=== PATIENT | female | born 1960 | race Caucasian/White ===

== ENCOUNTER 2016-12-21 02:33 | Inpatient (IN) | payer BC ==
[2016-12-21] MEDS ORDERED: SODIUM CHLORIDE 1,000 ML IV STA (03:33)
[2016-12-21] MEDS ORDERED: CLINDAMYCIN 600MG PREMIX IVPB 50 ML IVPB ONE ×3 (03:33→17:01)
[2016-12-21] MEDS ORDERED: VANCOMYCIN 2,000 MG in DEXTROSE 5%-WATER - 500 ML IVPB ONE (03:34)
[2016-12-21] MEDS ORDERED: VANCOMYCIN 1 GRAM (PRE-DOCKED) 250 ML IVPB ONE (03:37)
[2016-12-21] MEDS ORDERED: morphine CARPU-JECT 2 MG/1 ML DISP.SYRIN IVPUSH ONE (03:54)
[2016-12-21] MEDS ORDERED: ONDANSETRON 4 MG/2 ML VIAL IVPUSH ONE (03:55)
[2016-12-21] MEDS ORDERED: ONDANSETRON 4 MG/2 ML VIAL ONE (04:00)
[2016-12-21] MEDS ORDERED: morphine CARPU-JECT 2 MG/1 ML DISP.SYRIN ONE (04:00)
--- NOTE | 2016-12-21 04:07 | PDOC ---
History of Present Illness - General Chief Complaint: Edema Stated Complaint: RIGHT LEG SWOLLEN Time Seen by Provider: 12/21/16 02:47 History Source: Patient Exam Limitations: No Limitations - History of Present Illness Initial Comments: 12/21/16 03:57 56yo Female patient presents to ED via EMS c/o right LE swelling, pain & infection. Patient states symptoms have been ongoing since . Patient saw Dr. Millard (Wound care MD) who wanted patient admitted last week, but patient refused. She was prescribed clindamycin 300 mg q8hrs, but symptoms continue to get worse. Associated numbness and drainage. Denies fever, DM, CP, Abd pain, n/v/d, confusion or any other complaints at this time. Occurred: reports: other (Ongoing) Severity: Yes: severe Lower Extremity Pain Location: right: leg Method of Injury: No: unknown, assault, burn, direct blow, fell, incised, motor vehicle accident, sports injury, twisted, other Modifying Factors: worse with: None, cold therapy, immobilization, pain medication, rest, other Lower Ext. Injury Location - Specific Injury Location Legs: right: bone tenderness, soft tissue tenderness, pain, swelling, left: normal inspection, non-tender, bilateral: normal range of motion Extremity Pain Location - Extremity Pain Location Extremity Pain Locations: right: leg Past History - Travel Traveled outside of the country in the last 30 days: No Close contact w/someone who was outside of country & ill: No - Past Medical History Allergies/Adverse Reactions: Allergies Allergy/AdvReac Type Severity Reaction Status Date / Time ibuprofen [From Motrin] Allergy Intermediate Rash Verified 07/14/16 11:22 Penicillins Allergy Intermediate Hives Verified 07/27/16 15:08 Home Medications: Ambulatory Orders Albuterol Sulfate [Proair Hfa -] 1 - 2 inh PO TID PRN #0 hfa.aer.ad 10/16/12 Glimepiride [Amaryl -] 2 mg PO AM 12/21/16 Anemia: No Asthma: Yes Cancer: No Cardiac Disorders: No CVA: No COPD: No CHF: No Dementia: No Diabetes: No GI Disorders: Yes (GERD) Disorders: No HTN: Yes Hypercholesterolemia: Yes Liver Disease: No Psychiatric Problems: Yes (anxiety/depression) Suicide Attempt (Hx): No Seizures: No Thyroid Disease: No - Immunization History Td Vaccination: Yes Immunization Up to Date: Yes - Psycho/Social/Smoking Cessation Hx Anxiety: Yes Suicidal Ideation: No Smoking Status: No Smoking History: Never smoked Years of Tobacco Use: 0 Have you smoked in the past 12 months: No Number of Cigarettes Smoked Daily: 0 If you are a former smoker, when did you quit?: 1983 Cigars Per Day: 0 Information on smoking cessation initiated: No Hx Alcohol Use: No Drug/Substance Use Hx: No Substance Use Type: None Hx Substance Use Treatment: No Review of Systems - Review of Systems Able to Perform ROS?: Yes Is the patient limited Nepalese proficient: No Constitutional: No: Chills, Fever Respiratory: No: Cough, Shortness of Breath, Stridor, Wheezing, Productive cough Cardiac (ROS): No: Chest Pain, Lightheadedness, Palpitations, Chest Tightness ABD/GI: No: Constipated, Diarrhea, Nausea, Poor Appetite, Poor Fluid Intake, Rectal Bleeding, Vomiting, Indigestion Musculoskeletal: No: Joint Pain, Joint Swelling, Joint Stiffness Integumentary: Yes: Erythema, Other (Swelling, infectious drainage.) All Other Systems: Reviewed and Negative *Physical Exam - Vital Signs Last Vital Signs Temp Pulse Resp BP Pulse Ox 98.1 F 97 H 21 189/122 100 12/21/16 02:45 12/21/16 02:45 12/21/16 02:45 12/21/16 02:45 12/21/16 02:45 - Physical Exam General Appearance: Yes: Nourished, Appropriately Dressed, Mild Distress. No: Apparent Distress, Moderate Distress, Severe Distress Neck: positive: Trachea midline, Supple, Stridor, Lymphadenopathy (R), Lymphadenopathy (L) Respiratory/Chest: positive: Lungs Clear, Normal Breath Sounds. negative: Respiratory Distress, Accessory Muscle Use, Labored Respiration, Rapid RR Cardiovascular: positive: Regular Rhythm, Regular Rate. negative: Edema, JVD, Murmur Gastrointestinal/Abdominal: positive: Normal Bowel Sounds, Soft. negative: Distended, Guarding, Rebound, Tenderness Musculoskeletal: positive: Normal Inspection. negative: CVA Tenderness Extremity: positive: Normal Range of Motion, Pedal Edema, Swelling, Erythema, Inflammation. negative: Normal Inspection Integumentary: positive: Normal Color, Dry, Warm, Erythema (Rt Leg) Neurologic: positive: president and ceo II-XII NML intact, Fully Oriented, Alert, Normal Mood/ Affect, Normal Response, Motor Strength 01/25 ED Treatment Course - LABORATORY CBC & Chemistry Diagram: 12/21/16 03:45 12/21/16 03:45 *DC/Admit/Observation/Transfer Diagnosis at time of Disposition: Cellulitis of right lower extremity - Discharge Dispostion Condition at time of disposition: Fair Admit: Yes
[2016-12-21] MEDS ORDERED: morphine CARPU-JECT 4 MG/1 ML DISP.SYRIN IVPUSH ONE (05:15)
[2016-12-21] MEDS ORDERED: morphine CARPU-JECT 4 MG/1 ML DISP.SYRIN ONE (05:16)
[2016-12-21 05:32] LABS: BASOPHIL 1.1 % (0-2.0); EOSINOPHIL 6.3 % (0-4.5); MCH 30.8 pg (25.7-33.7); MCHC 33.6 g/dl (32.0-36.0); MEAN CELL VOLUME 91.8 fl (80-96); MEAN PLT VOLUME 8.1 fl (7.5-11.1); NEUTROPHILS 72.1 % (42.8-82.8); PLATELET COUNT 292 K/MM3 (134-434); RDW 14.4 % (11.6-15.6); WHITE BLOOD COUNT 7.9 K/mm3 (4.0-10.0)
[2016-12-21 06:00] LABS: ALBUMIN 3.4 g/dl (3.4-5.0); ALK PHOS 194 U/L (45-117); ANION GAP 14 (8-16); BILIRUBIN,TOTAL 0.8 mg/dL (0.2-1.0); CALCIUM 8.5 mg/dL (8.5-10.1); CO2 26 mmol/L (21-32); CREATININE 0.7 mg/dL (0.55-1.02); GLUCOSE,RANDOM 94 mg/dL (74-106); SGOT/AST 82 U/L (15-37); SGPT/ALT 67 U/L (12-78); TOT PROT 7.3 g/dl (6.4-8.2)
--- NOTE | 2016-12-21 06:20 | PDOC ---
[id number] 100 12/21/16 02:45 12/21/16 02:45 12/21/16 02:45 12/21/16 02:45 12/21/16 02:45 ED Treatment Course - LABORATORY CBC & Chemistry Diagram: 12/23/16 06:00 12/23/16 06:00 - ADDITIONAL ORDERS Additional order review: Laboratory Results 12/21/16 03:45 Sodium 139 Potassium 3.5 Chloride 99 Carbon Dioxide 26 Anion Gap 14 BUN 3 L D Creatinine 0.7 Creat Clearance w eGFR > 60 Random Glucose 94 Calcium 8.5 Total Bilirubin 0.8 D AST 82 H ALT 67 Alkaline Phosphatase 194 H D Total Protein 7.3 Albumin 3.4 D 12/21/16 03:45 RBC 3.94 MCV 91.8 MCHC 33.6 RDW 14.4 D MPV 8.1 Neutrophils % 72.1 Lymphocytes % 11.2 D Monocytes % 9.3 D Eosinophils % 6.3 H D Basophils % 1.1 - Medications Given in the ED: ED Medications Discontinued Medications Generic Name Dose Route Start Last Admin Trade Name Freq PRN Reason Stop Dose Admin Clindamycin Phosphate 50 mls @ 100 mls/hr 12/21/16 03:33 12/21/16 03:51 Cleocin 600 Mg Premix Ivpb - IVPB 12/21/16 04:02 100 mls/hr ONCE ONE Administration Sodium Chloride 1,000 mls @ 1,000 mls/hr 12/21/16 03:33 12/21/16 03:51 Normal Saline - IV 12/21/16 04:32 1,000 mls/hr ASDIR STA Administration Vancomycin HCl 2,000 mg/ 500 mls @ 250 mls/hr 12/21/16 03:34 12/21/16 04:09 Dextrose IVPB 12/21/16 05:33 250 mls/hr ONCE ONE Administration Protocol Morphine Sulfate 2 mg 12/21/16 03:54 12/21/16 04:09 Morphine Injection - IVPUSH 12/21/16 03:55 2 mg ONCE ONE Administration Morphine Sulfate 4 mg 12/21/16 05:15 12/21/16 05:21 Morphine Injection - IVPUSH 12/21/16 05:16 4 mg ONCE ONE Administration Ondansetron HCl 4 mg 12/21/16 03:55 12/21/16 04:09 Zofran Injection IVPUSH 12/21/16 03:56 4 mg ONCE ONE Administration Medical Decision Making - Medical Decision Making 12/21/16 06:19 agree with care from [employer] Clement *DC/Admit/Observation/Transfer Diagnosis at time of Disposition: Cellulitis of right lower extremity - Discharge Dispostion Condition at time of disposition: Fair
--- NOTE | 2016-12-21 08:23 | HP ---
CHIEF COMPLAINT: PCP:Dr.Heera Galindo HISTORY OF PRESENT ILLNESS: This is a 56 y/o F with PMH of HTN, Asthma, Gerd, Varicose veins, who went to see Dr. Millard at wound care 1 week ago, for redness, warmth and swelling of her right lower extremity. Patient was send home on Clindamycin and silvadene ointment. She took it for 1 week, but came back to ER with worsening pain, redness, swelling, chills, subtle fever and nausea. In the ER, (1)Stable vitals (2)No fever or leukocytosis (3)severe redness, warmth, swelling, burning sensation at right guajardo. Minimal oozing. Recent Travel:none PAST MEDICAL HISTORY:as above, denied h/o DM. PAST SURGICAL HISTORY:"rt leg" fracture and bryce placement in 2012. Social History: Smoking:never Alcohol:denied Drugs: denied Family History:Mother-HTN Allergies ibuprofen [From Motrin] Allergy (Intermediate, Verified 07/14/16 11:22) Rash Penicillins Allergy (Intermediate, Verified 07/27/16 15:08) Hives HOME MEDICATIONS: Proair inhaler prn Norvasc 10mg daily Prilosec 20mg daily REVIEW OF SYSTEMS CONSTITUTIONAL: Had fever, chills, subtle fevers, nausea at home. HEENT: Absent: rhinorrhea, nasal congestion, throat pain. CARDIOVASCULAR: Absent: chest pain, irregular heart rate RESPIRATORY: Absent: cough, shortness of breath, dyspnea with exertion, orthopnea, wheezing, stridor, hemoptysis GASTROINTESTINAL: Absent: abdominal pain, abdominal distension,vomiting, diarrhea, constipation GENITOURINARY: no c/o dysuria, frequency, urgency, hesitancy, hematuria, flank pain MUSCULOSKELETAL: no c/o myalgia, arthralgia, joint swelling, back pain, neck pain SKIN: Absent: rt guajardo, red, warm , swollen HEMATOLOGIC/IMMUNOLOGIC: Absent: easy bleeding, easy bruising, lymphadenopathy, frequent infections ENDOCRINE: Absent: unexplained weight gain, unexplained weight loss, heat intolerance, cold intolerance NEUROLOGIC: Absent: headache, focal weakness or paresthesias, dizziness, unsteady gait, seizure, mental status changes, bladder or bowel incontinence PSYCHIATRIC: Absent: anxiety, depression. PHYSICAL EXAMINATION GENERAL: Awake, alert, and fully oriented,occasional c/o burning in rt guajardo. HEAD: Normal with no signs of trauma. EYES: extraocular movements intact, sclera anicteric, conjunctiva clear. No lid lag. EARS:Ears normal,no discharges NECK: Normal range of motion, supple LUNGS: Breath sounds equal, clear to auscultation bilaterally. No wheezes, and no crackles. No accessory muscle use. HEART: Regular rate and rhythm, normal S1 and S2 without murmur, rub or gallop. ABDOMEN: Soft, nontender, not distended MUSCULOSKELETAL: Normal range of motion at all joints. Except pain fullmovement in rt leg sec to cellultis. UPPER EXTREMITIES: well-perfused. No cyanosis. No clubbing. No peripheral edema. LOWER EXTREMITIES: 2+ pulses to both LEs. warm, well-perfused.Rt LE guajardo area- red, warm, swollen, minimal oozing. NEUROLOGICAL: Cranial nerves II-XII intact. Normal speech. gait not observed PSYCHIATRIC: Cooperative. Good eye contact. Appropriate mood and affect. SKIN: as mentioned above ASSESSMENT/PLAN: This is a 56 y/o F who came to ER with Rt LE cellulitis, after having failed outpt therapy with Clindamycin. 1.Rt LE cellulitis- failed outpt therapy with Clinda, Silvadene topical -Patient had subtle fevers, nausea, chills at home. -Patient remains afebrile and without leukocytosis here -Leg painful, has difficulty walking, no h/o trauma. -Received vanco and Clinda IV in ER -IV hydration. -Placed ID consult- -Informed about admission-He will see the pt. -continue Pain management -PT consult when pt improves -Silvadene ointment for local wound care -Follow up blood cultures, gram stain, wound culture. 2. H/O Asthma-Stable -continue proair prn 3.HTN-BP stable -will continue norvasc 4.GERD -on prilosec 20 at home -will keep her on protonix 40mg for now. DVT pro-Lovenox SQ GI Pro-on protonix Visit type - Emergency Visit Emergency Visit: No - New Patient This patient is new to me today: Yes Date on this admission: 01/07/17 - Critical Care Critical Care patient: No
[2016-12-21] MEDS ORDERED: OXYCODONE/APAP 5/325MG COMBO TABLET PO PRN (09:49)
[2016-12-21] MEDS: SODIUM CHLORIDE 1,000 ML IV SCH (10:00)
[2016-12-21] MEDS ORDERED: COLLAGENASE CLOSTRIDIUM HIST. 30 GRAMS TUBE TP SCH (10:00)
[2016-12-21] MEDS ORDERED: OXYCODONE/APAP 5/325MG COMBO TABLET ONE (10:26)
[2016-12-21] MEDS ORDERED: PANTOPRAZOLE 40 MG TABLET (FP) ONE (10:26)
[2016-12-21] MEDS ORDERED: amLODIPine BESYLATE 5 MG TABLET (FP) ONE (10:26)
[2016-12-21] MEDS: ENOXAPARIN NA (PORCINE) 40 MG/0.4 ML DISP.SYRIN SQ SCH (10:34)
[2016-12-21] MEDS: PANTOPRAZOLE 40 MG TABLET (FP) PO SCH (10:35)
[2016-12-21] MEDS: oxyCODONE HCL 5 MG TABLET PO PRN ×2 (10:35→10:36)
[2016-12-21] MEDS: amLODIPine BESYLATE 10 MG TABLET (FP) PO SCH (10:35)
[2016-12-21] MEDS: ACETAMINOPHEN 325 MG TABLET (FP) PO PRN (10:36)
--- NOTE | 2016-12-21 13:27 | CONSULT ---
- Consultation REQUESTING PROVIDER: Giancarlo Millard DO (Wound Care) CONSULT REQUEST: We have been asked to surgically evaluate this patient for RLE cellulitis. PCP: Dorene Galindo HPI: Called to eval 56 yo female with PMHx noted below. Patient is very well know to Dr. Millard as he follows her in the [facility]. Last seen in [facility] 1 week ago for RLE redness, warmth and swelling. She was sent home on Clindamycin and silvadene ointment. She hasn't washed her leg since first being diagnosed with above problem. She was suppossed to be seen in the [facility] today at 1PM but decided on coming to ER due to increased pain. She ambulates unassisted. Deneis n/v/f/c or trauma. PMHx: HTN, asthma, Gerd, Varicose veins PSHx: RLE fracture w/ intermedularry bryce 2012. Allergies ibuprofen --> Rash Penicillins --> Hives HOME MEDS Proair INH prn Norvasc 10mg daily Prilosec 20mg daily ROS: CONSTITUTIONAL: Absent: fever, chills, diaphoresis, generalized weakness, malaise, loss of appetite, weight change CARDIOVASCULAR: Absent: chest pain, syncope, palpitations, irregular heart rate , lightheadedness, peripheral edema RESPIRATORY: Absent: cough, shortness of breath, dyspnea with exertion, wheezing , stridor, hemoptysis GASTROINTESTINAL:Absent: abdominal pain, abdominal distension, nausea, vomiting , diarrhea, constipation, melena, hematochezia GENITOURINARY: Absent: dysuria, frequency, urgency, hesitancy, hematuria, flank pain, genital pain MUSCULOSKELETAL: Absent: myalgia, arthralgia, joint swelling, back pain, neck pain SKIN: See above. HEMATOLOGIC/IMMUNOLOGIC: Absent: easy bleeding, easy bruising, lymphadenopathy NEUROLOGIC: Absent: headache, focal weakness, paresthesias, dizziness, unsteady gait, seizure, mental status changes, PSYCHIATRIC: Absent: anxiety, depression, suicidal or homicidal ideation, hallucinations. PE: GENERAL: Awake, alert, and fully oriented, nad. HEAD: Normal with no signs of trauma. EYES: PERRL, sclera anicteric, conjunctiva clear. NECK: Normal ROM, supple without lymphadenopathy, JVD, or masses. LUNGS: CTA b/l anteriorly HEART: RRR MUSCULOSKELETAL: Normal ROM at all joints. No bony deformities or tenderness. No CVA tenderness. UPPER EXTREMITIES: 2+ pulses, warm, well-perfused. No cyanosis. Cap refill <2 seconds. No peripheral edema. LOWER EXTREMITIES: 2+ pulses, warm, well-perfused, No calf tenderness b/l. No peripheral edema. NEUROLOGICAL: Normal speech, gait not observed. PSYCH: Cooperative. Good eye contact. Appropriate mood and affect. SKIN: RLE distal calf to ankle with circumfrential cellulitis. Erythema. Slightly weeping. Slight odor. No purulent drainage. Vital Signs Temperature 97.9 F 12/21/16 10:22 Pulse Rate 95 H 12/21/16 10:22 Respiratory Rate 16 12/21/16 10:22 Blood Pressure 125/82 12/21/16 10:22 O2 Sat by Pulse Oximetry (%) 99 12/21/16 10:22 Lab Results WBC 7.9 K/mm3 (4.0-10.0) 12/21/16 03:45 RBC 3.94 M/mm3 (3.60-5.2) 12/21/16 03:45 Hgb 12.2 GM/dL (10.7-15.3) D 12/21/16 03:45 Hct 36.2 % (32.4-45.2) 12/21/16 03:45 MCV 91.8 fl (80-96) 12/21/16 03:45 MCHC 33.6 g/dl (32.0-36.0) 12/21/16 03:45 RDW 14.4 % (11.6-15.6) D 12/21/16 03:45 Plt Count 292 K/MM3 (134-434) 12/21/16 03:45 Sodium 139 mmol/L (136-145) 12/21/16 03:45 Potassium 3.5 mmol/L (3.5-5.1) 12/21/16 03:45 Chloride 99 mmol/L (98-107) 12/21/16 03:45 Carbon Dioxide 26 mmol/L (21-32) 12/21/16 03:45 Anion Gap 14 (8-16) 12/21/16 03:45 BUN 3 mg/dL (7-18) L D 12/21/16 03:45 Creatinine 0.7 mg/dL (0.55-1.02) 12/21/16 03:45 Random Glucose 94 mg/dL (74-106) 12/21/16 03:45 Calcium 8.5 mg/dL (8.5-10.1) 12/21/16 03:45 Problem List - Problems (1) Cellulitis of right lower extremity Assessment/Plan: RLE washed with warm soapy water, irrigated with dilute betadine. Dressed with xeroform/4x4/kerlix Elevate extremity IV abx No further surgical intervention Cont medical management Code(s): L03.115 - CELLULITIS OF RIGHT LOWER LIMB Visit type - Case Type Case Type: ED Admission - Emergency Emergency Visit: Yes ED Registration Date: 12/21/16 Care time: The patient presented to the Emergency Department on the above date and was hospitalized for further evaluation of their emergent condition. - New patient This patient is new to me today: Yes Date on this admission: 12/21/16
--- NOTE | 2016-12-21 16:13 | CONSULT ---
Consult Consult Specialty:: infectious diseases Reason for Consultation:: cellulitis of the leg - History of Present Illness Chief Complaint: pain and swelling of the leg History of Present Illness: 56yo Female patient c/o right LE swelling, pain & infection. Patient states symptoms have been ongoing since . Patient saw Dr. Millard who wanted patient admitted last week, but patient refused. She was prescribed clindamycin 300 mg q8hrs, but symptoms continue to get worse. Associated numbness and drainage. Denies fever, DM, CP, Abd pain, n/v/d, confusion or any other complaints at this time. patient looks very dishevelled and her leg according to her has become very bad and pain has increased - History Source History Provided By: Patient Limitations to Obtaining History: No Limitations - Alcohol/Substance Use Hx Alcohol Use: No - Smoking History Smoking history: Never smoked Have you smoked in the past 12 months: No Aproximately how many cigarettes per day: 0 If you are a former smoker, when did you quit?: 1983 Home Medications - Allergies Allergies/Adverse Reactions: Allergies Allergy/AdvReac Type Severity Reaction Status Date / Time ibuprofen [From Motrin] Allergy Intermediate Rash Verified 07/14/16 11:22 Penicillins Allergy Intermediate Hives Verified 07/27/16 15:08 - Home Medications Home Medications: Ambulatory Orders Albuterol Sulfate [Proair Hfa -] 1 - 2 inh PO TID PRN #0 hfa.aer.ad 10/16/12 Amlodipine Besylate [Norvasc -] 10 mg PO DAILY 12/21/16 Review of Systems - Review of Systems Constitutional: reports: No Symptoms Eyes: reports: No Symptoms HENT: reports: No Symptoms Neck: reports: No Symptoms Cardiovascular: reports: No Symptoms Respiratory: reports: No Symptoms Gastrointestinal: reports: No Symptoms Genitourinary: reports: No Symptoms Musculoskeletal: reports: Extremity Pain, Other Integumentary: reports: Change in Color, Erythema Neurological: reports: No Symptoms Endocrine: reports: No Symptoms Hematology/Lymphatic: reports: No Symptoms Psychiatric: reports: No Symptoms Physical Exam Vital Signs: Vital Signs Temperature 97.9 F 12/21/16 10:22 Pulse Rate 95 H 12/21/16 10:22 Respiratory Rate 16 12/21/16 10:22 Blood Pressure 125/82 12/21/16 10:22 O2 Sat by Pulse Oximetry (%) 99 12/21/16 10:22 Constitutional: Yes: Well Nourished, No Distress, Calm Eyes: Yes: Conjunctiva Clear HENT: Yes: Atraumatic Neck: Yes: Supple, Trachea Midline Cardiovascular: Yes: Regular Rate and Rhythm Respiratory: Yes: Regular, CTA Bilaterally Gastrointestinal: Yes: Normal Bowel Sounds, Soft ...Rectal Exam: Yes: Deferred Musculoskeletal: Yes: Muscle Pain, Other Extremities: Yes: Erythema Integumentary: Yes: Other (cellulitis rt leg. Erythema. Slightly weeping. Slight odor. No purulent drainage.) Neurological: Yes: Alert, Oriented Psychiatric: Yes: Alert, Oriented Assessment/Plan Problem List - Problems (1) Cellulitis of right lower extremity Code(s): L03.115 - CELLULITIS OF RIGHT LOWER LIMB after looking at the history i think patient probably has mrsa she had been on clinda but did not improve plan will start on vanco and zosyn will await for culture report and then decide
[2016-12-21 16:17] VITALS: BMI 28.3
[2016-12-21] MEDS: CLINDAMYCIN 600MG PREMIX IVPB 50 ML IVPB SCH ×2 (17:00→18:36)
[2016-12-21] MEDS: SILVER SULFADIAZINE 1% TOP CREAM 50 GM JAR TP SCH ×2 (18:35→22:55)
[2016-12-21] MEDS ORDERED: INFLUENZA VACCINE 45 MCG/0.5 ML (MDV 16-17) IM ONE (21:00)
[2016-12-21] MEDS: AZTREONAM 1 GM in DEXTROSE 5%-WATER - 50 ML IVPB SCH (21:10)
[2016-12-22] MEDS: SODIUM CHLORIDE 1,000 ML IV SCH ×2 (00:14→18:26)
[2016-12-22] MEDS: CLINDAMYCIN 600MG PREMIX IVPB 50 ML IVPB SCH ×3 (02:10→17:13)
[2016-12-22] MEDS: oxyCODONE HCL 5 MG TABLET PO PRN ×4 (02:23→23:09)
[2016-12-22] MEDS: ACETAMINOPHEN 325 MG TABLET (FP) PO PRN ×4 (02:25→23:08)
[2016-12-22] MEDS: AZTREONAM 1 GM in DEXTROSE 5%-WATER - 50 ML IVPB SCH ×2 (03:03→11:36)
[2016-12-22] MEDS: VANCOMYCIN 1,250 MG in DEXTROSE 5%-WATER - 250 ML IVPB SCH (04:05)
--- NOTE | 2016-12-22 08:24 | PN ---
Progress Note (short form) - Note Progress Note: She states that he leg feels better, somewhat painful with dressing change. Vital Signs Period Temp Pulse Resp BP Sys/Bazzi Pulse Ox Last 24 Hr 97.9 F-99.4 F 84-95 16-18 125-160/82-102 96-99 PE: RLE: dressing dry today with dressing change. No serous drainage noted. Mild erythema to ankle and mid calf. +2 Dp pulse. CBC, BMP 12/21/16 03:45 12/21/16 03:45 A/p: 56 yo female with chronic RLE wound, seen in [facility] Local wound care today with warm/soapy water and reapplied xerform/kerlix by nursing staff. IV abx as per ID, clind/vanco Elevate legs at all time to help with swelling
[2016-12-22 08:44] LABS: BASOPHIL 0.8 % (0-2.0); EOSINOPHIL 8.7 % (0-4.5); MCHC 33.1 g/dl (32.0-36.0); MEAN CELL VOLUME 93.7 fl (80-96); MEAN PLT VOLUME 7.8 fl (7.5-11.1); NEUTROPHILS 62.8 % (42.8-82.8); PLATELET COUNT 246 K/MM3 (134-434); RDW 14.6 % (11.6-15.6); WHITE BLOOD COUNT 5.1 K/mm3 (4.0-10.0)
[2016-12-22 09:01] LABS: URINE APPEARANCE CLOUDY; URINE BILIRUBIN NEGATIVE (NEGATIVE); URINE COLOR LTYELLOW; URINE GLUCOSE (UA) NEGATIVE (NEGATIVE); URINE KETONE NEGATIVE (NEGATIVE); URINE LEUK ESTERASE NEGATIVE (NEGATIVE); URINE NITRITE NEGATIVE (NEGATIVE); URINE PROTEIN NEGATIVE (NEGATIVE); URINE UROBILINOGEN NEGATIVE E.U./dl (0.2-1.0)
[2016-12-22 09:02] LABS: URINE BLOOD 2+ (NEGATIVE)
[2016-12-22 09:04] LABS: URINE MUCUS RARE; URINE RBC <1 /hpf (0-3); URINE WBC 3 /hpf (3-5)
[2016-12-22] MEDS ORDERED: ALBUTEROL SO4 6.7 GM HFA INHALER IH PRN ×3 (09:11→09:19)
--- NOTE | 2016-12-22 09:13 | PN ---
Progress Note (short form) - Note Progress Note: Subjective: The patient was seen and examined at the bedside, she reports her leg is feeling better today. Dressing change with Valarie JIMENEZ at bedside Current Medications Generic Name Dose Route Start Last Admin Trade Name Freq PRN Reason Stop Dose Admin Acetaminophen 325 mg 12/21/16 10:23 12/22/16 08:36 Tylenol - PO 325 mg Q6H PRN Administration PAIN Amlodipine Besylate 10 mg 12/21/16 10:00 12/21/16 10:35 Norvasc - PO 10 mg DAILY NICCI Administration Enoxaparin Sodium 40 mg 12/21/16 10:00 12/21/16 10:34 Lovenox - SQ 40 mg DAILY NICCI Administration Sodium Chloride 1,000 mls @ 100 mls/hr 12/21/16 08:45 12/22/16 00:14 Normal Saline - IV 100 mls/hr ASDIR NICCI Administration Clindamycin Phosphate 50 mls @ 100 mls/hr 12/21/16 15:00 12/22/16 02:10 Cleocin 600 Mg Premix Ivpb - IVPB 100 mls/hr Q8H-IV NICCI Administration Aztreonam 1 gm/ Dextrose 50 mls @ 100 mls/hr 12/21/16 18:00 12/22/16 03:03 IVPB 100 mls/hr Q8H-IV NICCI Administration Protocol Vancomycin HCl 1,250 mg/ 250 mls @ 166.667 mls/hr 12/22/16 04:00 12/22/16 04:05 Dextrose IVPB 166.667 mls/hr DAILY@0400 NICCI Administration Protocol Oxycodone HCl 5 mg 12/21/16 10:23 12/22/16 08:35 Roxicodone - PO 5 mg Q6H PRN Administration PAIN Pantoprazole Sodium 40 mg 12/21/16 10:00 12/21/16 10:35 Protonix - PO 40 mg DAILY NICCI Administration Objective: Vital Signs Period Temp Pulse Resp BP Sys/Bazzi Pulse Ox Last 24 Hr 97.9 F-99.4 F 84-95 16-18 125-160/82-102 96-99 Physical Exam: General: NAD, A&Ox3 Lungs: CTA bilaterally Heart: RRR, S1S2 Abd: Soft, non-tender, non-distended. Normoactive bowel sounds Ext: RLE with erythema ankle to mid calf. 2+ DP pulse. Neuro: CN 2-12 intact CBCD WBC 5.1 K/mm3 (4.0-10.0) D 12/22/16 06:00 RBC 3.45 M/mm3 (3.60-5.2) L 12/22/16 06:00 Hgb 10.7 GM/dL (10.7-15.3) D 12/22/16 06:00 Hct 32.3 % (32.4-45.2) L 12/22/16 06:00 MCV 93.7 fl (80-96) 12/22/16 06:00 MCHC 33.1 g/dl (32.0-36.0) 12/22/16 06:00 RDW 14.6 % (11.6-15.6) 12/22/16 06:00 Plt Count 246 K/MM3 (134-434) 12/22/16 06:00 MPV 7.8 fl (7.5-11.1) 12/22/16 06:00 CMP Sodium 139 mmol/L (136-145) 12/21/16 03:45 Potassium 3.5 mmol/L (3.5-5.1) 12/21/16 03:45 Chloride 99 mmol/L (98-107) 12/21/16 03:45 Carbon Dioxide 26 mmol/L (21-32) 12/21/16 03:45 Anion Gap 14 (8-16) 12/21/16 03:45 BUN 3 mg/dL (7-18) L D 12/21/16 03:45 Creatinine 0.7 mg/dL (0.55-1.02) 12/21/16 03:45 Creat Clearance w eGFR > 60 (>60) 12/21/16 03:45 Random Glucose 94 mg/dL (74-106) 12/21/16 03:45 Calcium 8.5 mg/dL (8.5-10.1) 12/21/16 03:45 Total Bilirubin 0.8 mg/dL (0.2-1.0) D 12/21/16 03:45 AST 82 U/L (15-37) H 12/21/16 03:45 ALT 67 U/L (12-78) 12/21/16 03:45 Alkaline Phosphatase 194 U/L (45-117) H D 12/21/16 03:45 Total Protein 7.3 g/dl (6.4-8.2) 12/21/16 03:45 Albumin 3.4 g/dl (3.4-5.0) D 12/21/16 03:45 Microbiology 12/21/16 03:45 Blood - Peripheral Venous Blood Culture - Preliminary NO GROWTH OBTAINED AFTER 24 HOURS, INCUBATION TO CONTINUE FOR 4 DAYS. 12/21/16 03:45 Blood - Peripheral Venous Blood Culture - Preliminary NO GROWTH OBTAINED AFTER 24 HOURS, INCUBATION TO CONTINUE FOR 4 DAYS. 12/21/16 05:15 Cellulitis Gram Stain - Final Assessment: This is a 56 year old female with PMHx of HTN, asthma, gerd, vericose veins, who presented to the ED with erythema, warmth, swelling of RLE x1 week. Plan: 1) ID: RLE cellulitis - Local wound care - Elevate RLE - Continue Vancomycin (12/21- ) - Continue Aztreonam (12/21- ) - Continue Clindamycin (12/21- ) - WBC wnl - Afebrile - F/u ID consult - Appreciate surgery consult 2) Pulmonary: Asthma - No active issues - Continue albuterol 3) Cardiology: HTN - Continue Norvasc 4) F/E/N: - Sodium controlled diet - Monitor electrolytes 5) Prophylaxis: - OOB ambulating - Lovenox 40mg sq daily 6) Dispo: - Requires continued inpatient care CODE STATUS: FULL CODE Visit type - Emergency Visit Emergency Visit: Yes ED Registration Date: 12/21/16 Care time: The patient presented to the Emergency Department on the above date and was hospitalized for further evaluation of their emergent condition. - New Patient This patient is new to me today: Yes Date on this admission: 12/22/16 - Critical Care Critical Care patient: No
[2016-12-22] MEDS ORDERED: PT OWN MED DRAWER 7, Y5N ONE (09:15)
[2016-12-22] MEDS: amLODIPine BESYLATE 10 MG TABLET (FP) PO SCH (09:20)
[2016-12-22] MEDS: PANTOPRAZOLE 40 MG TABLET (FP) PO SCH (09:20)
[2016-12-22] MEDS: ENOXAPARIN NA (PORCINE) 40 MG/0.4 ML DISP.SYRIN SQ SCH (09:21)
[2016-12-22 09:25] LABS: CALCIUM 7.9 mg/dL (8.5-10.1); CREATININE 0.7 mg/dL (0.55-1.02)
[2016-12-22] MEDS ORDERED: POTASSIUM CHLORIDE TABS 20 MEQ TABLET.ER (FP) PO ONE (09:52)
--- NOTE | 2016-12-22 15:55 | PN ---
Progress Note, Physician History of Present Illness: patient feeling better wound care following dressing done leg starting to look better patient feeling better - Current Medication List Current Medications: Active Medications Acetaminophen (Tylenol -) 325 mg PO Q6H PRN PRN Reason: PAIN Last Admin: 12/22/16 15:43 Dose: 325 mg Albuterol Sulfate (Ventolin Hfa Inhaler -) 1 puff IH TID PRN PRN Reason: SHORTNESS OF BREATH Albuterol Sulfate (Ventolin Hfa Inhaler -) 2 puff IH TID PRN PRN Reason: SHORTNESS OF BREATH Amlodipine Besylate (Norvasc -) 10 mg PO DAILY [facility] Last Admin: 12/22/16 09:20 Dose: 10 mg Enoxaparin Sodium (Lovenox -) 40 mg SQ DAILY [facility] Last Admin: 12/22/16 09:21 Dose: 40 mg Sodium Chloride (Normal Saline -) 1,000 mls @ 100 mls/hr IV ASDIR [facility] Last Admin: 12/22/16 00:14 Dose: 100 mls/hr Clindamycin Phosphate (Cleocin 600 Mg Premix Ivpb -) 50 mls @ 100 mls/hr IVPB Q8H-IV [facility] Last Admin: 12/22/16 09:20 Dose: 100 mls/hr Vancomycin HCl 1,250 mg/ (Dextrose) 250 mls @ 166.667 mls/hr IVPB DAILY@0400 [facility] PRN Reason: Protocol Last Admin: 12/22/16 04:05 Dose: 166.667 mls/hr Oxycodone HCl (Roxicodone -) 5 mg PO Q6H PRN PRN Reason: PAIN Last Admin: 12/22/16 15:42 Dose: 5 mg Pantoprazole Sodium (Protonix -) 40 mg PO DAILY [facility] Last Admin: 12/22/16 09:20 Dose: 40 mg - Objective Vital Signs: Vital Signs Temperature 98.6 F 12/22/16 15:11 Pulse Rate 88 12/22/16 15:11 Respiratory Rate 18 12/22/16 15:11 Blood Pressure 147/95 12/22/16 10:25 O2 Sat by Pulse Oximetry (%) 96 12/21/16 21:00 Constitutional: Yes: No Distress, Calm Cardiovascular: Yes: Regular Rate and Rhythm Respiratory: Yes: Regular, CTA Bilaterally Gastrointestinal: Yes: Normal Bowel Sounds, Soft Musculoskeletal: Yes: Other Extremities: Yes: Erythema Integumentary: Yes: Erythema (improving) Neurological: Yes: Alert, Oriented Psychiatric: Yes: Alert Labs: CBC, BMP 12/22/16 06:00 12/22/16 06:00 Assessment/Plan Problem List - Problems (1) Cellulitis of right lower extremity Code(s): L03.115 - CELLULITIS OF RIGHT LOWER LIMB after looking at the history i think patient probably has mrsa she had been on clinda but did not improve plan will stop aztreonam continue vanco rest as per primary team
[2016-12-22] MEDS ORDERED: diphenhydrAMINE HCL 25 MG CAPSULE (FP) PO ONE (23:38)
[2016-12-23] MEDS: CLINDAMYCIN 600MG PREMIX IVPB 50 ML IVPB SCH ×2 (01:58→09:28)
[2016-12-23] MEDS: VANCOMYCIN 1,250 MG in DEXTROSE 5%-WATER - 250 ML IVPB SCH (04:05)
[2016-12-23] MEDS: SODIUM CHLORIDE 1,000 ML IV SCH ×2 (06:50→19:42)
[2016-12-23 07:43] LABS: MCH 31.1 pg (25.7-33.7); MCHC 33.3 g/dl (32.0-36.0); MEAN CELL VOLUME 93.5 fl (80-96); MEAN PLT VOLUME 7.7 fl (7.5-11.1); PLATELET COUNT 250 K/MM3 (134-434); RDW 14.5 % (11.6-15.6); WHITE BLOOD COUNT 5.1 K/mm3 (4.0-10.0)
[2016-12-23 07:58] LABS: CALCIUM 7.9 mg/dL (8.5-10.1); CREATININE 0.6 mg/dL (0.55-1.02)
--- NOTE | 2016-12-23 08:47 | PN ---
Progress Note (short form) - Note Progress Note: Subjective: The patient was seen and examined at the bedside, she reports feeling better today and is "eager to go home" Current Medications Generic Name Dose Route Start Last Admin Trade Name Fresaroj PRN Reason Stop Dose Admin Acetaminophen 325 mg 12/21/16 10:23 12/22/16 23:08 Tylenol - PO 325 mg Q6H PRN Administration PAIN Albuterol Sulfate 1 puff 12/22/16 09:19 Ventolin Hfa Inhaler - IH TID PRN SHORTNESS OF BREATH Albuterol Sulfate 2 puff 12/22/16 09:19 Ventolin Hfa Inhaler - IH TID PRN SHORTNESS OF BREATH Amlodipine Besylate 10 mg 12/21/16 10:00 12/22/16 09:20 Norvasc - PO 10 mg DAILY [facility] Administration Enoxaparin Sodium 40 mg 12/21/16 10:00 12/22/16 09:21 Lovenox - SQ 40 mg DAILY [facility] Administration Sodium Chloride 1,000 mls @ 100 mls/hr 12/21/16 08:45 12/23/16 06:50 Normal Saline - IV 100 mls/hr ASDIR [facility] Administration Clindamycin Phosphate 50 mls @ 100 mls/hr 12/21/16 15:00 12/23/16 01:58 Cleocin 600 Mg Premix Ivpb - IVPB 100 mls/hr Q8H-IV [facility] Administration Vancomycin HCl 1,250 mg/ 250 mls @ 166.667 mls/hr 12/22/16 04:00 12/23/16 04:05 Dextrose IVPB 166.667 mls/hr DAILY@0400 [facility] Administration Protocol Oxycodone HCl 5 mg 12/21/16 10:23 12/22/16 23:09 Roxicodone - PO 5 mg Q6H PRN Administration PAIN Pantoprazole Sodium 40 mg 12/21/16 10:00 12/22/16 09:20 Protonix - PO 40 mg DAILY [facility] Administration Objective: Vital Signs Period Temp Pulse Resp BP Sys/Bazzi Pulse Ox Last 24 Hr 98.2 F-99.0 F 85-92 18-20 147-157/95-106 97 Physical Exam: General: NAD, A&Ox3 Lungs: CTA bilaterally Heart: RRR, S1S2 Abd: Soft, non-tender, non-distended. Normoactive bowel sounds Ext: RLE with dressing, c/d/i. 2+ DP pulse. Neuro: CN 2-12 intact CBCD WBC 5.1 K/mm3 (4.0-10.0) 12/23/16 06:00 RBC 3.40 M/mm3 (3.60-5.2) L 12/23/16 06:00 Hgb 10.6 GM/dL (10.7-15.3) L 12/23/16 06:00 Hct 31.8 % (32.4-45.2) L 12/23/16 06:00 MCV 93.5 fl (80-96) 12/23/16 06:00 MCHC 33.3 g/dl (32.0-36.0) 12/23/16 06:00 RDW 14.5 % (11.6-15.6) 12/23/16 06:00 Plt Count 250 K/MM3 (134-434) 12/23/16 06:00 MPV 7.7 fl (7.5-11.1) 12/23/16 06:00 CMP Sodium 140 mmol/L (136-145) 12/23/16 06:00 Potassium 3.5 mmol/L (3.5-5.1) 12/23/16 06:00 Chloride 104 mmol/L (98-107) 12/23/16 06:00 Carbon Dioxide 27 mmol/L (21-32) 12/23/16 06:00 Anion Gap 9 (8-16) 12/23/16 06:00 BUN 3 mg/dL (7-18) L 12/23/16 06:00 Creatinine 0.6 mg/dL (0.55-1.02) 12/23/16 06:00 Creat Clearance w eGFR > 60 (>60) 12/21/16 03:45 Random Glucose 100 mg/dL (74-106) 12/23/16 06:00 Calcium 7.9 mg/dL (8.5-10.1) L 12/23/16 06:00 Total Bilirubin 0.8 mg/dL (0.2-1.0) D 12/21/16 03:45 AST 82 U/L (15-37) H 12/21/16 03:45 ALT 67 U/L (12-78) 12/21/16 03:45 Alkaline Phosphatase 194 U/L (45-117) H D 12/21/16 03:45 Total Protein 7.3 g/dl (6.4-8.2) 12/21/16 03:45 Albumin 3.4 g/dl (3.4-5.0) D 12/21/16 03:45 Microbiology 12/21/16 03:45 Blood - Peripheral Venous Blood Culture - Preliminary NO GROWTH OBTAINED AFTER 48 HOURS, INCUBATION TO CONTINUE FOR 3 DAYS. 12/21/16 03:45 Blood - Peripheral Venous Blood Culture - Preliminary NO GROWTH OBTAINED AFTER 48 HOURS, INCUBATION TO CONTINUE FOR 3 DAYS. 12/21/16 05:15 Cellulitis Gram Stain - Final 12/21/16 05:15 Cellulitis Wound Culture - Preliminary Presumptive Mrsa (Pbp2a Pos) Assessment: This is a 56 year old female with PMHx of HTN, asthma, gerd, vericose veins, who presented to the ED with erythema, warmth, swelling of RLE x1 week. Plan: 1) ID: RLE cellulitis, presumptive MRSA - Local wound care (xeroform, can be discharged with silvadene) - Elevate RLE - Continue Vancomycin (12/21- ) - Discontinued Aztreonam (12/21-12/22) - Discontinued Clindamycin (12/21-12/22) - WBC wnl - Afebrile - Appreciate ID consult - Appreciate surgery consult 2) Pulmonary: Asthma - No active issues - Continue albuterol 3) Cardiology: HTN - Continue Norvasc 4) F/E/N: - Sodium controlled diet - Monitor electrolytes 5) Prophylaxis: - OOB ambulating - Lovenox 40mg sq daily - PT evaluation (patient reports only walking to the commode) 6) Dispo: - Requires continued inpatient care CODE STATUS: FULL CODE Visit type - Emergency Visit Emergency Visit: Yes ED Registration Date: 12/21/16 Care time: The patient presented to the Emergency Department on the above date and was hospitalized for further evaluation of their emergent condition. - New Patient This patient is new to me today: No - Critical Care Critical Care patient: No
--- NOTE | 2016-12-23 08:50 | PN ---
Progress Note (short form) - Note Progress Note: Pt states that her foot is less tender. Vital Signs Period Temp Pulse Resp BP Sys/Bazzi Pulse Ox Last 24 Hr 98.2 F-99.0 F 85-92 18-20 147-157/95-106 97 PE: RLE: +2 DP pulse. Decreased erythema. Mild tenderness with dressing change. Overall dressing dry from yesterday. Wound irrigated/xeroform/kerlix and mukesh wrap applied. CBC, BMP 12/23/16 06:00 12/23/16 06:00 Microbiology 12/21/16 05:15 Cellulitis Gram Stain - Final 12/21/16 05:15 Cellulitis Wound Culture - Preliminary Presumptive Mrsa (Pbp2a Pos) A/P: 56 yo female with chronic RLE wound, admitted with cellulitis Cellulitis improving Cont IV abx, as per ID, Wound culture presumpive MRSA on Vanco Local wound care, may resume silvadene/mukesh wraps and f/u at outpt with Dr. Millard. D/w Dr. Millard
[2016-12-23] MEDS ORDERED: PT OWN MED DRAWER 7, Y5N ONE ×2 (09:23→10:55)
[2016-12-23] MEDS: amLODIPine BESYLATE 10 MG TABLET (FP) PO SCH (09:27)
[2016-12-23] MEDS: ENOXAPARIN NA (PORCINE) 40 MG/0.4 ML DISP.SYRIN SQ SCH (09:28)
[2016-12-23] MEDS: PANTOPRAZOLE 40 MG TABLET (FP) PO SCH (09:28)
[2016-12-23] MEDS: oxyCODONE HCL 5 MG TABLET PO PRN ×2 (10:57→21:40)
[2016-12-23] MEDS: ACETAMINOPHEN 325 MG TABLET (FP) PO PRN ×2 (10:58→21:41)
[2016-12-23] MEDS: POLYETHYLENE GLYCOL 3350 119 GM BTL PO SCH (10:58)
--- NOTE | 2016-12-23 16:48 | PN ---
Progress Note, Physician History of Present Illness: patient feeling better legs improving itching better erythema improving - Current Medication List Current Medications: Active Medications Acetaminophen (Tylenol -) 325 mg PO Q6H PRN PRN Reason: PAIN Last Admin: 12/23/16 10:58 Dose: 325 mg Albuterol Sulfate (Ventolin Hfa Inhaler -) 1 puff IH TID PRN PRN Reason: SHORTNESS OF BREATH Albuterol Sulfate (Ventolin Hfa Inhaler -) 2 puff IH TID PRN PRN Reason: SHORTNESS OF BREATH Amlodipine Besylate (Norvasc -) 10 mg PO DAILY [facility] Last Admin: 12/23/16 09:27 Dose: 10 mg Enoxaparin Sodium (Lovenox -) 40 mg SQ DAILY [facility] Last Admin: 12/23/16 09:28 Dose: 40 mg Sodium Chloride (Normal Saline -) 1,000 mls @ 100 mls/hr IV ASDIR [facility] Last Admin: 12/23/16 06:50 Dose: 100 mls/hr Vancomycin HCl 1,250 mg/ (Dextrose) 250 mls @ 166.667 mls/hr IVPB DAILY@0400 [facility] PRN Reason: Protocol Last Admin: 12/23/16 04:05 Dose: 166.667 mls/hr Oxycodone HCl (Roxicodone -) 5 mg PO Q6H PRN PRN Reason: PAIN Last Admin: 12/23/16 10:57 Dose: 5 mg Pantoprazole Sodium (Protonix -) 40 mg PO DAILY [facility] Last Admin: 12/23/16 09:28 Dose: 40 mg Polyethylene Glycol (Miralax (For Daily Use) -) 17 gm PO DAILY [facility] Last Admin: 12/23/16 10:58 Dose: 17 gm - Objective Vital Signs: Vital Signs Temperature 98.8 F 12/23/16 15:18 Pulse Rate 82 12/23/16 15:18 Respiratory Rate 18 12/23/16 15:18 Blood Pressure 149/94 12/23/16 13:10 O2 Sat by Pulse Oximetry (%) 97 12/22/16 21:00 Constitutional: Yes: No Distress, Calm Cardiovascular: Yes: Regular Rate and Rhythm Respiratory: Yes: Regular, CTA Bilaterally Gastrointestinal: Yes: Normal Bowel Sounds, Soft Musculoskeletal: Yes: Other Extremities: Yes: Erythema (resolving), Other Integumentary: Yes: Rash (improving) Neurological: Yes: Alert, Oriented Psychiatric: Yes: Alert Labs: CBC, BMP 12/23/16 06:00 12/23/16 06:00 Assessment/Plan Problem List - Problems (1) Cellulitis of right lower extremity Code(s): L03.115 - CELLULITIS OF RIGHT LOWER LIMB after looking at the history i think patient probably has mrsa she had been on clinda but did not improve plan mrsa wound infection continue vanco
[2016-12-24] MEDS: VANCOMYCIN 1,250 MG in DEXTROSE 5%-WATER - 250 ML IVPB SCH (03:46)
[2016-12-24] MEDS: amLODIPine BESYLATE 10 MG TABLET (FP) PO SCH ×2 (05:42→09:50)
[2016-12-24] MEDS: ENOXAPARIN NA (PORCINE) 40 MG/0.4 ML DISP.SYRIN SQ SCH (09:50)
[2016-12-24] MEDS: POLYETHYLENE GLYCOL 3350 119 GM BTL PO SCH (09:50)
[2016-12-24] MEDS: PANTOPRAZOLE 40 MG TABLET (FP) PO SCH (09:50)
[2016-12-24] MEDS: SODIUM CHLORIDE 1,000 ML IV SCH (09:59)
--- NOTE | 2016-12-24 13:29 | PN ---
Progress Note, Physician History of Present Illness: doing well no issues legs healing well - Current Medication List Current Medications: Active Medications Acetaminophen (Tylenol -) 325 mg PO Q6H PRN PRN Reason: PAIN Last Admin: 12/23/16 21:41 Dose: 325 mg Albuterol Sulfate (Ventolin Hfa Inhaler -) 1 puff IH TID PRN PRN Reason: SHORTNESS OF BREATH Albuterol Sulfate (Ventolin Hfa Inhaler -) 2 puff IH TID PRN PRN Reason: SHORTNESS OF BREATH Amlodipine Besylate (Norvasc -) 10 mg PO DAILY [facility] Last Admin: 12/24/16 09:50 Dose: 10 mg Enoxaparin Sodium (Lovenox -) 40 mg SQ DAILY [facility] Last Admin: 12/24/16 09:50 Dose: 40 mg Vancomycin HCl 1,250 mg/ (Dextrose) 250 mls @ 166.667 mls/hr IVPB DAILY@0400 [facility] PRN Reason: Protocol Last Admin: 12/24/16 03:46 Dose: 166.667 mls/hr Pantoprazole Sodium (Protonix -) 40 mg PO DAILY [facility] Last Admin: 12/24/16 09:50 Dose: 40 mg Polyethylene Glycol (Miralax (For Daily Use) -) 17 gm PO DAILY [facility] Last Admin: 12/24/16 09:50 Dose: 17 gm - Objective Vital Signs: Vital Signs Temperature 98.3 F 12/24/16 09:10 Pulse Rate 98 H 12/24/16 09:10 Respiratory Rate 18 12/24/16 09:10 Blood Pressure 192/112 12/24/16 09:10 O2 Sat by Pulse Oximetry (%) 97 12/23/16 21:00 Constitutional: Yes: No Distress, Calm Cardiovascular: Yes: Regular Rate and Rhythm Respiratory: Yes: Regular, CTA Bilaterally Gastrointestinal: Yes: Normal Bowel Sounds, Soft Musculoskeletal: Yes: Other Extremities: Yes: Other Integumentary: Yes: Erythema (much better) Wound/Incision: Yes: Other Neurological: Yes: Alert, Oriented Psychiatric: Yes: Alert, Oriented Labs: CBC, BMP 12/23/16 06:00 12/23/16 06:00 Assessment/Plan Problem List - Problems (1) Cellulitis of right lower extremity Code(s): L03.115 - CELLULITIS OF RIGHT LOWER LIMB plan mrsa wound infection continue vanco will reevaluate the wound once the erythema improves will transition to po patient was able to bear some weight
--- NOTE | 2016-12-24 15:44 | PN ---
Progress Note (short form) - Note Progress Note: Discussed case with Dr. Carranza who will assume the care of the patient as of 16: 20 on 12/24/16 Subjective: The patient was seen and examined at the bedside, she reports walking to and from her commode. Current Medications Generic Name Dose Route Start Last Admin Trade Name Freq PRN Reason Stop Dose Admin Acetaminophen 325 mg 12/21/16 10:23 12/22/16 23:08 Tylenol - PO 325 mg Q6H PRN Administration PAIN Albuterol Sulfate 1 puff 12/22/16 09:19 Ventolin Hfa Inhaler - IH TID PRN SHORTNESS OF BREATH Albuterol Sulfate 2 puff 12/22/16 09:19 Ventolin Hfa Inhaler - IH TID PRN SHORTNESS OF BREATH Amlodipine Besylate 10 mg 12/21/16 10:00 12/22/16 09:20 Norvasc - PO 10 mg DAILY [facility] Administration Enoxaparin Sodium 40 mg 12/21/16 10:00 12/22/16 09:21 Lovenox - SQ 40 mg DAILY [facility] Administration Sodium Chloride 1,000 mls @ 100 mls/hr 12/21/16 08:45 12/23/16 06:50 Normal Saline - IV 100 mls/hr ASDIR [facility] Administration Clindamycin Phosphate 50 mls @ 100 mls/hr 12/21/16 15:00 12/23/16 01:58 Cleocin 600 Mg Premix Ivpb - IVPB 100 mls/hr Q8H-IV [facility] Administration Vancomycin HCl 1,250 mg/ 250 mls @ 166.667 mls/hr 12/22/16 04:00 12/23/16 04:05 Dextrose IVPB 166.667 mls/hr DAILY@0400 [facility] Administration Protocol Oxycodone HCl 5 mg 12/21/16 10:23 12/22/16 23:09 Roxicodone - PO 5 mg Q6H PRN Administration PAIN Pantoprazole Sodium 40 mg 12/21/16 10:00 12/22/16 09:20 Protonix - PO 40 mg DAILY [facility] Administration Objective: Vital Signs Period Temp Pulse Resp BP Sys/Bazzi Pulse Ox Last 24 Hr 98.2 F-99.1 F 83-106 16-20 149-192/97-112 97-97 Physical Exam: General: NAD, A&Ox3 Lungs: CTA bilaterally Heart: RRR, S1S2 Abd: Soft, non-tender, non-distended. Normoactive bowel sounds Ext: RLE with dressing, c/d/i. 2+ DP pulse. Neuro: CN 2-12 intact CBCD WBC 5.1 K/mm3 (4.0-10.0) 12/23/16 06:00 RBC 3.40 M/mm3 (3.60-5.2) L 12/23/16 06:00 Hgb 10.6 GM/dL (10.7-15.3) L 12/23/16 06:00 Hct 31.8 % (32.4-45.2) L 12/23/16 06:00 MCV 93.5 fl (80-96) 12/23/16 06:00 MCHC 33.3 g/dl (32.0-36.0) 12/23/16 06:00 RDW 14.5 % (11.6-15.6) 12/23/16 06:00 Plt Count 250 K/MM3 (134-434) 12/23/16 06:00 MPV 7.7 fl (7.5-11.1) 12/23/16 06:00 CMP Sodium 140 mmol/L (136-145) 12/23/16 06:00 Potassium 3.5 mmol/L (3.5-5.1) 12/23/16 06:00 Chloride 104 mmol/L (98-107) 12/23/16 06:00 Carbon Dioxide 27 mmol/L (21-32) 12/23/16 06:00 Anion Gap 9 (8-16) 12/23/16 06:00 BUN 3 mg/dL (7-18) L 12/23/16 06:00 Creatinine 0.6 mg/dL (0.55-1.02) 12/23/16 06:00 Creat Clearance w eGFR > 60 (>60) 12/21/16 03:45 Random Glucose 100 mg/dL (74-106) 12/23/16 06:00 Calcium 7.9 mg/dL (8.5-10.1) L 12/23/16 06:00 Total Bilirubin 0.8 mg/dL (0.2-1.0) D 12/21/16 03:45 AST 82 U/L (15-37) H 12/21/16 03:45 ALT 67 U/L (12-78) 12/21/16 03:45 Alkaline Phosphatase 194 U/L (45-117) H D 12/21/16 03:45 Total Protein 7.3 g/dl (6.4-8.2) 12/21/16 03:45 Albumin 3.4 g/dl (3.4-5.0) D 12/21/16 03:45 Microbiology 12/21/16 03:45 Blood - Peripheral Venous Blood Culture - Preliminary NO GROWTH OBTAINED AFTER 72 HOURS, INCUBATION TO CONTINUE FOR 2 DAYS. 12/21/16 03:45 Blood - Peripheral Venous Blood Culture - Preliminary NO GROWTH OBTAINED AFTER 72 HOURS, INCUBATION TO CONTINUE FOR 2 DAYS. 12/21/16 05:15 Cellulitis Gram Stain - Final 12/21/16 05:15 Cellulitis Wound Culture - Final Mr Jeffrey Aureus Assessment: This is a 56 year old female with PMHx of HTN, asthma, gerd, vericose veins, who presented to the ED with erythema, warmth, swelling of RLE x1 week. Plan: 1) ID: RLE cellulitis, + MRSA - Local wound care (xeroform, can be discharged with silvadene) - Continue Vancomycin (12/21- ) until improves - Discontinued Aztreonam (12/21-12/22) - Discontinued Clindamycin (12/21-12/22) - WBC wnl - Afebrile - Appreciate ID consult - Appreciate surgery consult 2) Pulmonary: Asthma - No active issues - Continue albuterol 3) Cardiology: HTN - Continue Norvasc 4) F/E/N: - Sodium controlled diet - Monitor electrolytes 5) Prophylaxis: - OOB ambulating - Lovenox 40mg sq daily - PT (difficulty bearing weight, f/u b/l lower extremity doppler to r/o DVT) 6) Dispo: - Requires continued inpatient care - Walked 20ft with PT, may require SNF CODE STATUS: FULL CODE Visit type - Emergency Visit Emergency Visit: Yes ED Registration Date: 12/21/16 Care time: The patient presented to the Emergency Department on the above date and was hospitalized for further evaluation of their emergent condition. - New Patient This patient is new to me today: No - Critical Care Critical Care patient: No
--- NOTE | 2016-12-24 19:03 | PN ---
Progress Note (short form) - Note Progress Note: Vascular surgery Pt seen and examined. Right lower ext cellulitis. Pt with palpable pulses. Had outpt reflux studies done in vascular clinic which showed reflux. Pt will need oupt endovenous laser therapy for veins. For now pt needs leg elevation and antibiotics for cellulitis. will follow Giancarlo Millard DO
[2016-12-25] MEDS: VANCOMYCIN 1,250 MG in DEXTROSE 5%-WATER - 250 ML IVPB SCH (04:44)
[2016-12-25] MEDS ORDERED: OXYCODONE/APAP 5/325MG COMBO TABLET PO PRN (06:35)
[2016-12-25] MEDS ORDERED: PT OWN MED DRAWER 7, Y5N ONE (09:23)
[2016-12-25] MEDS: PANTOPRAZOLE 40 MG TABLET (FP) PO SCH (09:25)
[2016-12-25] MEDS: ACETAMINOPHEN 325 MG TABLET (FP) PO PRN (09:25)
[2016-12-25] MEDS: POLYETHYLENE GLYCOL 3350 119 GM BTL PO SCH (09:25)
[2016-12-25] MEDS: amLODIPine BESYLATE 10 MG TABLET (FP) PO SCH (09:26)
[2016-12-25] MEDS: ENOXAPARIN NA (PORCINE) 40 MG/0.4 ML DISP.SYRIN SQ SCH (09:27)
--- NOTE | 2016-12-25 14:35 | PN ---
Progress Note, Physician Chief Complaint: Pt is having rash over back and on arms Itching+ No fever History of Present Illness: Pt seen by vascular after discussing on the floor yesterday No Fever NoSOB - Current Medication List Current Medications: Active Medications Acetaminophen (Tylenol -) 325 mg PO Q6H PRN PRN Reason: PAIN Last Admin: 12/25/16 09:25 Dose: 325 mg Albuterol Sulfate (Ventolin Hfa Inhaler -) 1 puff IH TID PRN PRN Reason: SHORTNESS OF BREATH Albuterol Sulfate (Ventolin Hfa Inhaler -) 2 puff IH TID PRN PRN Reason: SHORTNESS OF BREATH Amlodipine Besylate (Norvasc -) 10 mg PO DAILY [facility] Last Admin: 12/25/16 09:26 Dose: 10 mg Enoxaparin Sodium (Lovenox -) 40 mg SQ DAILY [facility] Last Admin: 12/25/16 09:27 Dose: 40 mg Vancomycin HCl 1,250 mg/ (Dextrose) 250 mls @ 166.667 mls/hr IVPB DAILY@0400 [facility] PRN Reason: Protocol Last Admin: 12/25/16 04:44 Dose: 166.667 mls/hr Pantoprazole Sodium (Protonix -) 40 mg PO DAILY [facility] Last Admin: 12/25/16 09:25 Dose: 40 mg Polyethylene Glycol (Miralax (For Daily Use) -) 17 gm PO DAILY [facility] Last Admin: 12/25/16 09:25 Dose: Not Given - Objective Vital Signs: Vital Signs Temperature 98.4 F 12/25/16 08:57 Pulse Rate 88 12/25/16 08:57 Respiratory Rate 18 12/25/16 08:57 Blood Pressure 157/86 12/25/16 08:57 O2 Sat by Pulse Oximetry (%) 97 12/24/16 21:00 Constitutional: Yes: No Distress Eyes: Yes: Conjunctiva Clear, EOM Intact HENT: Yes: Atraumatic, Normocephalic Neck: Yes: Supple, Trachea Midline Cardiovascular: Yes: Regular Rate and Rhythm, S1, S2 Respiratory: Yes: Regular, CTA Bilaterally Gastrointestinal: Yes: Normal Bowel Sounds, Soft Musculoskeletal: Yes: Other (Lt leg cellulitis) Edema: Yes Edema: LLE: 1+ Peripheral Pulses WNL: Yes Neurological: Yes: Alert, Oriented, Cran Nerves II-XII Intact Labs: CBC, BMP 12/23/16 06:00 12/23/16 06:00 Problem List - Problems (1) Cellulitis of right lower extremity Code(s): L03.115 - CELLULITIS OF RIGHT LOWER LIMB (2) Hypertension Code(s): I10 - ESSENTIAL (PRIMARY) HYPERTENSION Qualifiers: Hypertension type: unspecified secondary hypertension Qualified Code(s) : I15.9 - Secondary hypertension, unspecified; I15 - Secondary hypertension (3) Asthma Code(s): J45.909 - UNSPECIFIED ASTHMA, UNCOMPLICATED (4) PVD (peripheral vascular disease) Code(s): I73.9 - PERIPHERAL VASCULAR DISEASE, UNSPECIFIED (5) HLD (hyperlipidemia) Code(s): E78.5 - HYPERLIPIDEMIA, UNSPECIFIED (6) Rash and nonspecific skin eruption Code(s): R21 - RASH AND OTHER NONSPECIFIC SKIN ERUPTION (7) Intertrigo Code(s): L30.4 - ERYTHEMA INTERTRIGO Assessment/Plan (1) Cellulitis of right lower extremity: Vanco/Etrapenam Code(s): L03.115 - CELLULITIS OF RIGHT LOWER LIMB (2) Hypertension Code(s): I10 - ESSENTIAL (PRIMARY) HYPERTENSION Qualifiers: Hypertension type: unspecified secondary hypertension Qualified Code(s) : I15.9 - Secondary hypertension, unspecified; I15 - Secondary hypertension (3) Asthma Code(s): J45.909 - UNSPECIFIED ASTHMA, UNCOMPLICATED (4) PVD (peripheral vascular disease) Code(s): I73.9 - PERIPHERAL VASCULAR DISEASE, UNSPECIFIED (5) HLD (hyperlipidemia) Code(s): E78.5 - HYPERLIPIDEMIA, UNSPECIFIED (6) Rash and nonspecific skin eruption: calaminie lotion/ Benedryl Code(s): R21 - RASH AND OTHER NONSPECIFIC SKIN ERUPTION (7) Intertrigo: Lotrimin cream BID Code(s): L30.4 - ERYTHEMA INTERTRIGO
--- NOTE | 2016-12-25 15:23 | PN ---
Progress Note, Physician History of Present Illness: legs evaluated still pretty red but have improved quite a bit pain much better able to bear weight - Current Medication List Current Medications: Active Medications Acetaminophen (Tylenol -) 325 mg PO Q6H PRN PRN Reason: PAIN 6-10 Stop: 12/31/16 06:00 Albuterol Sulfate (Ventolin Hfa Inhaler -) 1 puff IH TID PRN PRN Reason: SHORTNESS OF BREATH Albuterol Sulfate (Ventolin Hfa Inhaler -) 2 puff IH TID PRN PRN Reason: SHORTNESS OF BREATH Amlodipine Besylate (Norvasc -) 10 mg PO DAILY [facility] Last Admin: 12/25/16 09:26 Dose: 10 mg Enoxaparin Sodium (Lovenox -) 40 mg SQ DAILY [facility] Last Admin: 12/25/16 09:27 Dose: 40 mg Vancomycin HCl 1,250 mg/ (Dextrose) 250 mls @ 166.667 mls/hr IVPB DAILY@0400 [facility] PRN Reason: Protocol Last Admin: 12/25/16 04:44 Dose: 166.667 mls/hr Oxycodone HCl (Roxicodone -) 5 mg PO Q6H PRN PRN Reason: PAIN 6-10 Stop: 12/31/16 06:00 Pantoprazole Sodium (Protonix -) 40 mg PO DAILY [facility] Last Admin: 12/25/16 09:25 Dose: 40 mg Polyethylene Glycol (Miralax (For Daily Use) -) 17 gm PO DAILY [facility] Last Admin: 12/25/16 09:25 Dose: Not Given - Objective Vital Signs: Vital Signs Temperature 98.4 F 12/25/16 08:57 Pulse Rate 88 12/25/16 08:57 Respiratory Rate 18 12/25/16 08:57 Blood Pressure 157/86 12/25/16 08:57 O2 Sat by Pulse Oximetry (%) 97 12/24/16 21:00 Constitutional: Yes: No Distress, Calm Cardiovascular: Yes: Regular Rate and Rhythm Respiratory: Yes: Regular, CTA Bilaterally Gastrointestinal: Yes: Normal Bowel Sounds, Soft Musculoskeletal: Yes: Other Extremities: Yes: Erythema (rt leg improving) Integumentary: Yes: Erythema, Rash Neurological: Yes: Alert, Oriented Psychiatric: Yes: Alert, Oriented Labs: CBC, BMP 12/23/16 06:00 12/23/16 06:00 Assessment/Plan Problem List - Problems (1) Cellulitis of right lower extremity Code(s): L03.115 - CELLULITIS OF RIGHT LOWER LIMB plan mrsa wound infection continue vanco await for vanco trough i still do not like the look of the leg will start patient on ertapenam and see if the improvement occurs
[2016-12-25] MEDS: oxyCODONE HCL 5 MG TABLET PO PRN (16:18)
[2016-12-25] MEDS: ERTAPENEM SODIUM 1 GM in SODIUM CHLORIDE 50 ML IVPB SCH (17:16)
[2016-12-25] MEDS: diphenhydrAMINE HCL 25 MG CAPSULE (FP) PO PRN (21:50)
[2016-12-26] MEDS: CLOTRIMAZOLE 1% CREAM 15 GM TUBE TP SCH ×3 (01:16→21:48)
[2016-12-26] MEDS: CALAMINE 8% TOPICAL LOTION 177 ML BOTTLE TP PRN (03:36)
[2016-12-26] MEDS: VANCOMYCIN 1,250 MG in DEXTROSE 5%-WATER - 250 ML IVPB SCH ×2 (03:36→17:28)
[2016-12-26] MEDS ORDERED: PT OWN MED DRAWER 7, Y5N ONE (08:47)
[2016-12-26] MEDS: ERTAPENEM SODIUM 1 GM in SODIUM CHLORIDE 50 ML IVPB SCH (09:51)
[2016-12-26] MEDS: POLYETHYLENE GLYCOL 3350 119 GM BTL PO SCH (09:52)
[2016-12-26] MEDS: ENOXAPARIN NA (PORCINE) 40 MG/0.4 ML DISP.SYRIN SQ SCH (09:52)
[2016-12-26] MEDS: amLODIPine BESYLATE 10 MG TABLET (FP) PO SCH (09:52)
[2016-12-26] MEDS: PANTOPRAZOLE 40 MG TABLET (FP) PO SCH (09:53)
--- NOTE | 2016-12-26 14:44 | PN ---
Progress Note, Physician History of Present Illness: feeling much better able to walk without pain still some pain - Current Medication List Current Medications: Active Medications Acetaminophen (Tylenol -) 325 mg PO Q6H PRN PRN Reason: PAIN 6-10 Stop: 12/31/16 06:00 Albuterol Sulfate (Ventolin Hfa Inhaler -) 1 puff IH TID PRN PRN Reason: SHORTNESS OF BREATH Albuterol Sulfate (Ventolin Hfa Inhaler -) 2 puff IH TID PRN PRN Reason: SHORTNESS OF BREATH Amlodipine Besylate (Norvasc -) 10 mg PO DAILY [facility] Last Admin: 12/26/16 09:52 Dose: 10 mg Calamine (Calamine 8% Topical Lotion -) 1 applic TP QID PRN PRN Reason: FOR ITCHING Last Admin: 12/26/16 03:36 Dose: 1 applic Clotrimazole (Lotrimin 1% Cream -) 1 applic TP BID [facility] Last Admin: 12/26/16 01:16 Dose: Not Given Diphenhydramine HCl (Benadryl -) 50 mg PO HS PRN PRN Reason: INSOMNIA Last Admin: 12/25/16 21:50 Dose: 50 mg Enoxaparin Sodium (Lovenox -) 40 mg SQ DAILY [facility] Last Admin: 12/26/16 09:52 Dose: 40 mg Vancomycin HCl 1,250 mg/ (Dextrose) 250 mls @ 166.667 mls/hr IVPB DAILY@0400 [facility] PRN Reason: Protocol Last Admin: 12/26/16 03:36 Dose: 166.667 mls/hr Ertapenem 1 gm/ Sodium (Chloride) 50 mls @ 50 mls/hr IVPB DAILY [facility] PRN Reason: Protocol Last Admin: 12/26/16 09:51 Dose: 50 mls/hr Oxycodone HCl (Roxicodone -) 5 mg PO Q6H PRN PRN Reason: PAIN 6-10 Stop: 12/31/16 06:00 Last Admin: 12/25/16 16:18 Dose: 5 mg Pantoprazole Sodium (Protonix -) 40 mg PO DAILY [facility] Last Admin: 12/26/16 09:53 Dose: 40 mg Polyethylene Glycol (Miralax (For Daily Use) -) 17 gm PO DAILY [facility] Last Admin: 12/26/16 09:52 Dose: Not Given - Objective Vital Signs: Vital Signs Temperature 98.6 F 12/26/16 07:05 Pulse Rate 88 12/26/16 07:05 Respiratory Rate 20 12/26/16 07:05 Blood Pressure 142/97 12/26/16 07:05 O2 Sat by Pulse Oximetry (%) 96 12/26/16 09:00 Constitutional: Yes: No Distress, Calm Cardiovascular: Yes: Regular Rate and Rhythm Respiratory: Yes: Regular, CTA Bilaterally Gastrointestinal: Yes: Normal Bowel Sounds, Soft Musculoskeletal: Yes: Other Extremities: Yes: Erythema (improving) Wound/Incision: Yes: Dressing Dry and Intact Neurological: Yes: Alert, Oriented Psychiatric: Yes: Alert, Oriented Labs: CBC, BMP 12/23/16 06:00 12/23/16 06:00 Assessment/Plan Problem List - Problems (1) Cellulitis of right lower extremity Code(s): L03.115 - CELLULITIS OF RIGHT LOWER LIMB plan mrsa wound infection vanco trough noted increased dose of vanco patient improving should be able to switch to oral abx by weekend
[2016-12-26] MEDS ORDERED: METOPROLOL TARTRATE 50 MG TABLET (FP) PO ONE (20:00)
--- NOTE | 2016-12-26 20:55 | PN ---
Progress Note, Physician Chief Complaint: Pt is having rash over back and on arms better today with Benedryl /Calamine lotion Able to walk today No fever History of Present Illness: Pt BP is high today Metoprolol 50mg PO stat and Pt is better - Current Medication List Current Medications: Active Medications Acetaminophen (Tylenol -) 325 mg PO Q6H PRN PRN Reason: PAIN 6-10 Stop: 12/31/16 06:00 Albuterol Sulfate (Ventolin Hfa Inhaler -) 1 puff IH TID PRN PRN Reason: SHORTNESS OF BREATH Albuterol Sulfate (Ventolin Hfa Inhaler -) 2 puff IH TID PRN PRN Reason: SHORTNESS OF BREATH Amlodipine Besylate (Norvasc -) 10 mg PO DAILY [facility] Last Admin: 12/26/16 09:52 Dose: 10 mg Calamine (Calamine 8% Topical Lotion -) 1 applic TP QID PRN PRN Reason: FOR ITCHING Last Admin: 12/26/16 03:36 Dose: 1 applic Clotrimazole (Lotrimin 1% Cream -) 1 applic TP BID [facility] Last Admin: 12/26/16 10:00 Dose: 1 applic Diphenhydramine HCl (Benadryl -) 50 mg PO HS PRN PRN Reason: INSOMNIA Last Admin: 12/25/16 21:50 Dose: 50 mg Enoxaparin Sodium (Lovenox -) 40 mg SQ DAILY [facility] Last Admin: 12/26/16 09:52 Dose: 40 mg Ertapenem 1 gm/ Sodium (Chloride) 50 mls @ 50 mls/hr IVPB DAILY [facility] PRN Reason: Protocol Last Admin: 12/26/16 09:51 Dose: 50 mls/hr Vancomycin HCl 1,250 mg/ (Dextrose) 250 mls @ 166.667 mls/hr IVPB Q12H [facility] PRN Reason: Protocol Last Admin: 12/26/16 17:28 Dose: 166.667 mls/hr Oxycodone HCl (Roxicodone -) 5 mg PO Q6H PRN PRN Reason: PAIN 6-10 Stop: 12/31/16 06:00 Last Admin: 12/25/16 16:18 Dose: 5 mg Pantoprazole Sodium (Protonix -) 40 mg PO DAILY [facility] Last Admin: 12/26/16 09:53 Dose: 40 mg Polyethylene Glycol (Miralax (For Daily Use) -) 17 gm PO DAILY [facility] Last Admin: 12/26/16 09:52 Dose: Not Given - Objective Vital Signs: Vital Signs Temperature 98.1 F 12/26/16 17:18 Pulse Rate 99 H 12/26/16 17:18 Respiratory Rate 20 12/26/16 17:18 Blood Pressure 178/116 12/26/16 17:18 O2 Sat by Pulse Oximetry (%) 96 12/26/16 09:00 Constitutional: Yes: No Distress Eyes: Yes: Conjunctiva Clear, EOM Intact HENT: Yes: Atraumatic, Normocephalic Neck: Yes: Supple, Trachea Midline Cardiovascular: Yes: Regular Rate and Rhythm, S1, S2 Respiratory: Yes: Regular, CTA Bilaterally Gastrointestinal: Yes: Normal Bowel Sounds, Soft Edema: RLE: 1+ Peripheral Pulses WNL: Yes Neurological: Yes: Alert, Oriented, Cran Nerves II-XII Intact Labs: CBC, BMP 12/23/16 06:00 12/23/16 06:00 Problem List - Problems (1) Cellulitis of right lower extremity Code(s): L03.115 - CELLULITIS OF RIGHT LOWER LIMB (2) Hypertension Code(s): I10 - ESSENTIAL (PRIMARY) HYPERTENSION Qualifiers: Hypertension type: unspecified secondary hypertension Qualified Code(s) : I15.9 - Secondary hypertension, unspecified; I15 - Secondary hypertension (3) Asthma Code(s): J45.909 - UNSPECIFIED ASTHMA, UNCOMPLICATED (4) PVD (peripheral vascular disease) Code(s): I73.9 - PERIPHERAL VASCULAR DISEASE, UNSPECIFIED (5) HLD (hyperlipidemia) Code(s): E78.5 - HYPERLIPIDEMIA, UNSPECIFIED (6) Rash and nonspecific skin eruption Code(s): R21 - RASH AND OTHER NONSPECIFIC SKIN ERUPTION (7) Intertrigo Code(s): L30.4 - ERYTHEMA INTERTRIGO Assessment/Plan (1) Cellulitis of right lower extremity: Vanco/Etrapenam Code(s): L03.115 - CELLULITIS OF RIGHT LOWER LIMB (2) Hypertension(Uncontrolled) Metoprolol 25 PO BID/ Norvasc 10 Po daily Code(s): I10 - ESSENTIAL (PRIMARY) HYPERTENSION Qualifiers: Hypertension type: unspecified secondary hypertension Qualified Code(s) : I15.9 - Secondary hypertension, unspecified; I15 - Secondary hypertension (3) Asthma Code(s): J45.909 - UNSPECIFIED ASTHMA, UNCOMPLICATED (4) PVD (peripheral vascular disease) Code(s): I73.9 - PERIPHERAL VASCULAR DISEASE, UNSPECIFIED (5) HLD (hyperlipidemia) Code(s): E78.5 - HYPERLIPIDEMIA, UNSPECIFIED (6) Rash and nonspecific skin eruption: calaminie lotion/ Benedryl Code(s): R21 - RASH AND OTHER NONSPECIFIC SKIN ERUPTION (7) Intertrigo: Lotrimin cream BID Code(s): L30.4 - ERYTHEMA INTERTRIGO
[2016-12-26] MEDS: METOPROLOL TARTRATE 25 MG TABLET (FP) PO SCH (21:48)
[2016-12-26] MEDS: oxyCODONE HCL 5 MG TABLET PO PRN (21:49)
[2016-12-26] MEDS: diphenhydrAMINE HCL 25 MG CAPSULE (FP) PO PRN (21:49)
[2016-12-27] MEDS: VANCOMYCIN 1,250 MG in DEXTROSE 5%-WATER - 250 ML IVPB SCH ×2 (04:23→15:06)
[2016-12-27] MEDS ORDERED: PT OWN MED DRAWER 7, Y5N ONE ×2 (09:08→14:51)
[2016-12-27] MEDS: METOPROLOL TARTRATE 25 MG TABLET (FP) PO SCH (10:08)
[2016-12-27] MEDS: amLODIPine BESYLATE 10 MG TABLET (FP) PO SCH (10:08)
[2016-12-27] MEDS: POLYETHYLENE GLYCOL 3350 119 GM BTL PO SCH (10:08)
[2016-12-27] MEDS: PANTOPRAZOLE 40 MG TABLET (FP) PO SCH (10:08)
[2016-12-27] MEDS: ENOXAPARIN NA (PORCINE) 40 MG/0.4 ML DISP.SYRIN SQ SCH (10:08)
[2016-12-27] MEDS: CALAMINE 8% TOPICAL LOTION 177 ML BOTTLE TP PRN (10:09)
[2016-12-27] MEDS: CLOTRIMAZOLE 1% CREAM 15 GM TUBE TP SCH ×2 (10:09→21:45)
[2016-12-27] MEDS: ERTAPENEM SODIUM 1 GM in SODIUM CHLORIDE 50 ML IVPB SCH (10:22)
[2016-12-27] MEDS: ACETAMINOPHEN 325 MG TABLET (FP) PO PRN ×2 (10:24→19:30)
--- NOTE | 2016-12-27 15:03 | PN ---
Progress Note, Physician History of Present Illness: doing well no complaints leg improving - Current Medication List Current Medications: Active Medications Acetaminophen (Tylenol -) 325 mg PO Q6H PRN PRN Reason: PAIN 6-10 Stop: 12/31/16 06:00 Last Admin: 12/27/16 10:24 Dose: 325 mg Albuterol Sulfate (Ventolin Hfa Inhaler -) 1 puff IH TID PRN PRN Reason: SHORTNESS OF BREATH Albuterol Sulfate (Ventolin Hfa Inhaler -) 2 puff IH TID PRN PRN Reason: SHORTNESS OF BREATH Amlodipine Besylate (Norvasc -) 10 mg PO DAILY [facility] Last Admin: 12/27/16 10:08 Dose: 10 mg Calamine (Calamine 8% Topical Lotion -) 1 applic TP QID PRN PRN Reason: FOR ITCHING Last Admin: 12/27/16 10:09 Dose: 1 applic Clotrimazole (Lotrimin 1% Cream -) 1 applic TP BID [facility] Last Admin: 12/27/16 10:09 Dose: 1 applic Diphenhydramine HCl (Benadryl -) 50 mg PO HS PRN PRN Reason: INSOMNIA Last Admin: 12/26/16 21:49 Dose: 50 mg Enoxaparin Sodium (Lovenox -) 40 mg SQ DAILY [facility] Last Admin: 12/27/16 10:08 Dose: 40 mg Ertapenem 1 gm/ Sodium (Chloride) 50 mls @ 50 mls/hr IVPB DAILY [facility] PRN Reason: Protocol Last Admin: 12/27/16 10:22 Dose: 50 mls/hr Vancomycin HCl 1,250 mg/ (Dextrose) 250 mls @ 166.667 mls/hr IVPB Q12H [facility] PRN Reason: Protocol Last Admin: 12/27/16 04:23 Dose: 166.667 mls/hr Metoprolol Tartrate (Lopressor -) 25 mg PO BID [facility] Last Admin: 12/27/16 10:08 Dose: 25 mg Oxycodone HCl (Roxicodone -) 5 mg PO Q6H PRN PRN Reason: PAIN 6-10 Stop: 12/31/16 06:00 Last Admin: 12/26/16 21:49 Dose: 5 mg Pantoprazole Sodium (Protonix -) 40 mg PO DAILY [facility] Last Admin: 12/27/16 10:08 Dose: 40 mg Polyethylene Glycol (Miralax (For Daily Use) -) 17 gm PO DAILY [facility] Last Admin: 12/27/16 10:08 Dose: Not Given - Objective Vital Signs: Vital Signs Temperature 98.3 F 12/27/16 10:00 Pulse Rate 68 12/27/16 10:00 Respiratory Rate 16 12/27/16 10:00 Blood Pressure 161/101 12/27/16 10:00 O2 Sat by Pulse Oximetry (%) 98 12/27/16 09:00 Constitutional: Yes: No Distress, Calm Cardiovascular: Yes: Regular Rate and Rhythm Respiratory: Yes: Regular, CTA Bilaterally Gastrointestinal: Yes: Normal Bowel Sounds, Soft Musculoskeletal: Yes: Other Extremities: Yes: Erythema (resolving) Integumentary: Yes: Erythema Neurological: Yes: Alert, Oriented Psychiatric: Yes: Alert, Oriented Labs: CBC, BMP 12/23/16 06:00 12/23/16 06:00 Assessment/Plan Problem List - Problems (1) Cellulitis of right lower extremity Code(s): L03.115 - CELLULITIS OF RIGHT LOWER LIMB plan mrsa wound infection continue current mgmt
--- NOTE | 2016-12-27 17:42 | PN ---
Progress Note, Physician Chief Complaint: Pt is having rash over back and on arms better today with Benedryl /Calamine lotion Able to walk today No fever History of Present Illness: Pt BP is high today Increase Metoprolol 50mg PO BID - Current Medication List Current Medications: Active Medications Acetaminophen (Tylenol -) 325 mg PO Q6H PRN PRN Reason: PAIN 6-10 Stop: 12/31/16 06:00 Last Admin: 12/27/16 10:24 Dose: 325 mg Albuterol Sulfate (Ventolin Hfa Inhaler -) 1 puff IH TID PRN PRN Reason: SHORTNESS OF BREATH Albuterol Sulfate (Ventolin Hfa Inhaler -) 2 puff IH TID PRN PRN Reason: SHORTNESS OF BREATH Amlodipine Besylate (Norvasc -) 10 mg PO DAILY [facility] Last Admin: 12/27/16 10:08 Dose: 10 mg Calamine (Calamine 8% Topical Lotion -) 1 applic TP QID PRN PRN Reason: FOR ITCHING Last Admin: 12/27/16 10:09 Dose: 1 applic Clotrimazole (Lotrimin 1% Cream -) 1 applic TP BID [facility] Last Admin: 12/27/16 10:09 Dose: 1 applic Diphenhydramine HCl (Benadryl -) 50 mg PO HS PRN PRN Reason: INSOMNIA Last Admin: 12/26/16 21:49 Dose: 50 mg Enoxaparin Sodium (Lovenox -) 40 mg SQ DAILY [facility] Last Admin: 12/27/16 10:08 Dose: 40 mg Ertapenem 1 gm/ Sodium (Chloride) 50 mls @ 50 mls/hr IVPB DAILY [facility] PRN Reason: Protocol Last Admin: 12/27/16 10:22 Dose: 50 mls/hr Vancomycin HCl 1,250 mg/ (Dextrose) 250 mls @ 166.667 mls/hr IVPB Q12H [facility] PRN Reason: Protocol Last Admin: 12/27/16 15:06 Dose: 166.667 mls/hr Metoprolol Tartrate (Lopressor -) 25 mg PO BID [facility] Last Admin: 12/27/16 10:08 Dose: 25 mg Oxycodone HCl (Roxicodone -) 5 mg PO Q6H PRN PRN Reason: PAIN 6-10 Stop: 12/31/16 06:00 Last Admin: 12/26/16 21:49 Dose: 5 mg Pantoprazole Sodium (Protonix -) 40 mg PO DAILY [facility] Last Admin: 12/27/16 10:08 Dose: 40 mg Polyethylene Glycol (Miralax (For Daily Use) -) 17 gm PO DAILY [facility] Last Admin: 12/27/16 10:08 Dose: Not Given - Objective Vital Signs: Vital Signs Temperature 98.3 F 12/27/16 17:13 Pulse Rate 83 12/27/16 17:13 Respiratory Rate 20 12/27/16 17:13 Blood Pressure 142/83 12/27/16 17:13 O2 Sat by Pulse Oximetry (%) 98 12/27/16 09:00 Constitutional: Yes: No Distress Eyes: Yes: Conjunctiva Clear, EOM Intact HENT: Yes: Atraumatic, Normocephalic Neck: Yes: Supple, Trachea Midline Cardiovascular: Yes: Regular Rate and Rhythm, S1, S2 Respiratory: Yes: Regular, CTA Bilaterally Gastrointestinal: Yes: Normal Bowel Sounds, Soft ...Rectal Exam: Yes: Deferred Musculoskeletal: Yes: Other (Rt leg cellulitis) Edema: RLE: Trace Neurological: Yes: Alert, Oriented, Cran Nerves II-XII Intact Labs: CBC, BMP 12/23/16 06:00 12/23/16 06:00 Problem List - Problems (1) Cellulitis of right lower extremity Code(s): L03.115 - CELLULITIS OF RIGHT LOWER LIMB (2) Hypertension Code(s): I10 - ESSENTIAL (PRIMARY) HYPERTENSION Qualifiers: Hypertension type: unspecified secondary hypertension Qualified Code(s) : I15.9 - Secondary hypertension, unspecified; I15 - Secondary hypertension (3) Asthma Code(s): J45.909 - UNSPECIFIED ASTHMA, UNCOMPLICATED (4) PVD (peripheral vascular disease) Code(s): I73.9 - PERIPHERAL VASCULAR DISEASE, UNSPECIFIED (5) HLD (hyperlipidemia) Code(s): E78.5 - HYPERLIPIDEMIA, UNSPECIFIED (6) Rash and nonspecific skin eruption Code(s): R21 - RASH AND OTHER NONSPECIFIC SKIN ERUPTION (7) Intertrigo Code(s): L30.4 - ERYTHEMA INTERTRIGO Assessment/Plan (1) Cellulitis of right lower extremity: Vanco/Etrapenam Code(s): L03.115 - CELLULITIS OF RIGHT LOWER LIMB (2) Hypertension(Uncontrolled) Metoprolol 50 PO BID/ Norvasc 10 Po daily Code(s): I10 - ESSENTIAL (PRIMARY) HYPERTENSION Qualifiers: Hypertension type: unspecified secondary hypertension Qualified Code(s) : I15.9 - Secondary hypertension, unspecified; I15 - Secondary hypertension (3) Asthma Code(s): J45.909 - UNSPECIFIED ASTHMA, UNCOMPLICATED (4) PVD (peripheral vascular disease) Code(s): I73.9 - PERIPHERAL VASCULAR DISEASE, UNSPECIFIED (5) HLD (hyperlipidemia) Code(s): E78.5 - HYPERLIPIDEMIA, UNSPECIFIED (6) Rash and nonspecific skin eruption: calaminie lotion/ Benedryl Code(s): R21 - RASH AND OTHER NONSPECIFIC SKIN ERUPTION (7) Intertrigo: Lotrimin cream BID Code(s): L30.4 - ERYTHEMA INTERTRIGO
[2016-12-27] MEDS: oxyCODONE HCL 5 MG TABLET PO PRN (19:29)
[2016-12-27] MEDS: METOPROLOL TARTRATE 50 MG TABLET (FP) PO SCH (21:46)
[2016-12-27] MEDS: diphenhydrAMINE HCL 25 MG CAPSULE (FP) PO PRN (21:46)
[2016-12-27] MEDS ORDERED: MAG HYDROX/AL HYDROX/SIMETH 30 ML UNIT-DOSE CUP PO PRN (23:18)
[2016-12-28] MEDS: VANCOMYCIN 1,250 MG in DEXTROSE 5%-WATER - 250 ML IVPB SCH ×2 (03:42→15:29)
[2016-12-28] MEDS ORDERED: PT OWN MED DRAWER 7, Y5N ONE (03:44)
[2016-12-28] MEDS: ENOXAPARIN NA (PORCINE) 40 MG/0.4 ML DISP.SYRIN SQ SCH (09:38)
[2016-12-28] MEDS: oxyCODONE HCL 5 MG TABLET PO PRN ×2 (09:38→19:00)
[2016-12-28] MEDS: amLODIPine BESYLATE 10 MG TABLET (FP) PO SCH (09:39)
[2016-12-28] MEDS: LACTOBACILLUS ACIDOPHILUS 1 EACH TAB (FP) PO SCH ×2 (09:39→21:36)
[2016-12-28] MEDS: PANTOPRAZOLE 40 MG TABLET (FP) PO SCH (09:39)
[2016-12-28] MEDS: METOPROLOL TARTRATE 50 MG TABLET (FP) PO SCH ×2 (09:39→21:36)
[2016-12-28] MEDS: CALAMINE 8% TOPICAL LOTION 177 ML BOTTLE TP PRN (09:40)
[2016-12-28] MEDS: POLYETHYLENE GLYCOL 3350 119 GM BTL PO SCH (09:41)
[2016-12-28] MEDS: CLOTRIMAZOLE 1% CREAM 15 GM TUBE TP SCH ×2 (09:43→21:36)
[2016-12-28] MEDS: ERTAPENEM SODIUM 1 GM in SODIUM CHLORIDE 50 ML IVPB SCH (09:54)
--- NOTE | 2016-12-28 14:33 | PN ---
Progress Note, Physician History of Present Illness: leg continues to do well still redness tenderness better patient walking better - Current Medication List Current Medications: Active Medications Acetaminophen (Tylenol -) 325 mg PO Q6H PRN PRN Reason: PAIN 6-10 Stop: 12/31/16 06:00 Last Admin: 12/27/16 19:30 Dose: 325 mg Al Hydroxide/Mg Hydroxide (Mylanta Oral Suspension -) 30 ml PO Q6H PRN PRN Reason: INDIGESTION Albuterol Sulfate (Ventolin Hfa Inhaler -) 1 puff IH TID PRN PRN Reason: SHORTNESS OF BREATH Albuterol Sulfate (Ventolin Hfa Inhaler -) 2 puff IH TID PRN PRN Reason: SHORTNESS OF BREATH Amlodipine Besylate (Norvasc -) 10 mg PO DAILY [facility] Last Admin: 12/28/16 09:39 Dose: 10 mg Calamine (Calamine 8% Topical Lotion -) 1 applic TP QID PRN PRN Reason: FOR ITCHING Last Admin: 12/28/16 09:40 Dose: 1 applic Clotrimazole (Lotrimin 1% Cream -) 1 applic TP BID [facility] Last Admin: 12/28/16 09:43 Dose: 1 applic Diphenhydramine HCl (Benadryl -) 50 mg PO HS PRN PRN Reason: INSOMNIA Last Admin: 12/27/16 21:46 Dose: 50 mg Ertapenem 1 gm/ Sodium (Chloride) 50 mls @ 50 mls/hr IVPB DAILY [facility] PRN Reason: Protocol Last Admin: 12/28/16 09:54 Dose: 50 mls/hr Vancomycin HCl 1,250 mg/ (Dextrose) 250 mls @ 166.667 mls/hr IVPB Q12H [facility] PRN Reason: Protocol Last Admin: 12/28/16 03:42 Dose: 166.667 mls/hr Lactobacillus Acidophilus (Bacid -) 1 tab PO BID [facility] Last Admin: 12/28/16 09:39 Dose: 1 tab Metoprolol Tartrate (Lopressor -) 50 mg PO BID [facility] Last Admin: 12/28/16 09:39 Dose: 50 mg Oxycodone HCl (Roxicodone -) 5 mg PO Q6H PRN PRN Reason: PAIN 6-10 Stop: 12/31/16 06:00 Last Admin: 12/28/16 09:38 Dose: 5 mg Pantoprazole Sodium (Protonix -) 40 mg PO DAILY [facility] Last Admin: 12/28/16 09:39 Dose: 40 mg Polyethylene Glycol (Miralax (For Daily Use) -) 17 gm PO DAILY [facility] Last Admin: 12/28/16 09:41 Dose: 17 gm - Objective Vital Signs: Vital Signs Temperature 99.1 F 12/28/16 10:00 Pulse Rate 79 12/28/16 10:00 Respiratory Rate 16 12/28/16 10:00 Blood Pressure 139/83 12/28/16 10:00 O2 Sat by Pulse Oximetry (%) 98 12/28/16 09:00 Constitutional: Yes: No Distress, Calm Cardiovascular: Yes: Regular Rate and Rhythm Respiratory: Yes: Regular, CTA Bilaterally Gastrointestinal: Yes: Normal Bowel Sounds, Soft Musculoskeletal: Yes: Other Extremities: Yes: Erythema, Other Integumentary: Yes: Erythema (improving) Neurological: Yes: Alert, Oriented Psychiatric: Yes: Alert Labs: CBC, BMP 12/23/16 06:00 12/23/16 06:00 Assessment/Plan Problem List - Problems (1) Cellulitis of right lower extremity Code(s): L03.115 - CELLULITIS OF RIGHT LOWER LIMB plan mrsa wound infection continue current mgmt will reevaluate wound tomorrow hopefully if it keeps on improving we will switch to oral patient will needs abx for some time as her response is very slow inspite of potent abx will stop ertapenam
[2016-12-28] MEDS ORDERED: oxyCODONE HCL 5 MG TABLET ONE (18:58)
[2016-12-28] MEDS: diphenhydrAMINE HCL 25 MG CAPSULE (FP) PO PRN (21:37)
--- NOTE | 2016-12-28 23:14 | PN ---
Progress Note, Physician Chief Complaint: Pt is having rash over back and on arms better today with Benedryl /Calamine lotion Able to walk today No fever History of Present Illness: Pt BP is high today Increase Metoprolol 50mg PO BID - Current Medication List Current Medications: Active Medications Acetaminophen (Tylenol -) 325 mg PO Q6H PRN PRN Reason: PAIN 6-10 Stop: 12/31/16 06:00 Last Admin: 12/27/16 19:30 Dose: 325 mg Al Hydroxide/Mg Hydroxide (Mylanta Oral Suspension -) 30 ml PO Q6H PRN PRN Reason: INDIGESTION Albuterol Sulfate (Ventolin Hfa Inhaler -) 1 puff IH TID PRN PRN Reason: SHORTNESS OF BREATH Albuterol Sulfate (Ventolin Hfa Inhaler -) 2 puff IH TID PRN PRN Reason: SHORTNESS OF BREATH Amlodipine Besylate (Norvasc -) 10 mg PO DAILY [facility] Last Admin: 12/28/16 09:39 Dose: 10 mg Calamine (Calamine 8% Topical Lotion -) 1 applic TP QID PRN PRN Reason: FOR ITCHING Last Admin: 12/28/16 09:40 Dose: 1 applic Clotrimazole (Lotrimin 1% Cream -) 1 applic TP BID [facility] Last Admin: 12/28/16 21:36 Dose: 1 applic Diphenhydramine HCl (Benadryl -) 50 mg PO HS PRN PRN Reason: INSOMNIA Last Admin: 12/28/16 21:37 Dose: 50 mg Vancomycin HCl 1,250 mg/ (Dextrose) 250 mls @ 166.667 mls/hr IVPB Q12H [facility] PRN Reason: Protocol Last Admin: 12/28/16 15:29 Dose: 166.667 mls/hr Lactobacillus Acidophilus (Bacid -) 1 tab PO BID [facility] Last Admin: 12/28/16 21:36 Dose: 1 tab Metoprolol Tartrate (Lopressor -) 50 mg PO BID [facility] Last Admin: 12/28/16 21:36 Dose: 50 mg Pantoprazole Sodium (Protonix -) 40 mg PO DAILY [facility] Last Admin: 12/28/16 09:39 Dose: 40 mg Polyethylene Glycol (Miralax (For Daily Use) -) 17 gm PO DAILY [facility] Last Admin: 12/28/16 09:41 Dose: 17 gm - Objective Vital Signs: Vital Signs Temperature 98.7 F 12/28/16 20:38 Pulse Rate 74 12/28/16 20:38 Respiratory Rate 20 12/28/16 21:00 Blood Pressure 153/90 12/28/16 20:38 O2 Sat by Pulse Oximetry (%) 99 12/28/16 21:00 Constitutional: Yes: Well Nourished Eyes: Yes: Conjunctiva Clear HENT: Yes: Atraumatic, Normocephalic Neck: Yes: Supple, Trachea Midline Cardiovascular: Yes: Regular Rate and Rhythm, S1, S2 Respiratory: Yes: Regular, CTA Bilaterally ...Rectal Exam: Yes: Deferred Musculoskeletal: Yes: Joint Stiffness Edema: No Labs: CBC, BMP 12/23/16 06:00 12/23/16 06:00 Problem List - Problems (1) Cellulitis of right lower extremity Code(s): L03.115 - CELLULITIS OF RIGHT LOWER LIMB (2) Hypertension Code(s): I10 - ESSENTIAL (PRIMARY) HYPERTENSION Qualifiers: Hypertension type: unspecified secondary hypertension Qualified Code(s) : I15.9 - Secondary hypertension, unspecified; I15 - Secondary hypertension (3) Asthma Code(s): J45.909 - UNSPECIFIED ASTHMA, UNCOMPLICATED (4) PVD (peripheral vascular disease) Code(s): I73.9 - PERIPHERAL VASCULAR DISEASE, UNSPECIFIED (5) HLD (hyperlipidemia) Code(s): E78.5 - HYPERLIPIDEMIA, UNSPECIFIED (6) Rash and nonspecific skin eruption Code(s): R21 - RASH AND OTHER NONSPECIFIC SKIN ERUPTION (7) Intertrigo Code(s): L30.4 - ERYTHEMA INTERTRIGO Assessment/Plan (1) Cellulitis of right lower extremity: Vanco/Etrapenam Code(s): L03.115 - CELLULITIS OF RIGHT LOWER LIMB (2) Hypertension(Uncontrolled) Metoprolol 50 PO BID/ Norvasc 10 Po daily Code(s): I10 - ESSENTIAL (PRIMARY) HYPERTENSION Qualifiers: Hypertension type: unspecified secondary hypertension Qualified Code(s) : I15.9 - Secondary hypertension, unspecified; I15 - Secondary hypertension (3) Asthma Code(s): J45.909 - UNSPECIFIED ASTHMA, UNCOMPLICATED (4) PVD (peripheral vascular disease) Code(s): I73.9 - PERIPHERAL VASCULAR DISEASE, UNSPECIFIED (5) HLD (hyperlipidemia) Code(s): E78.5 - HYPERLIPIDEMIA, UNSPECIFIED (6) Rash and nonspecific skin eruption: calaminie lotion/ Benedryl Code(s): R21 - RASH AND OTHER NONSPECIFIC SKIN ERUPTION (7) Intertrigo: Lotrimin cream BID Code(s): L30.4 - ERYTHEMA INTERTRIGO
[2016-12-29] MEDS: VANCOMYCIN 1,250 MG in DEXTROSE 5%-WATER - 250 ML IVPB SCH ×2 (04:29→16:12)
[2016-12-29] MEDS ORDERED: PT OWN MED DRAWER 7, Y5N ONE ×2 (10:03→16:05)
[2016-12-29] MEDS: METOPROLOL TARTRATE 50 MG TABLET (FP) PO SCH ×2 (10:05→22:33)
[2016-12-29] MEDS: LACTOBACILLUS ACIDOPHILUS 1 EACH TAB (FP) PO SCH ×2 (10:05→22:33)
[2016-12-29] MEDS: PANTOPRAZOLE 40 MG TABLET (FP) PO SCH (10:08)
[2016-12-29] MEDS: POLYETHYLENE GLYCOL 3350 119 GM BTL PO SCH (10:08)
[2016-12-29] MEDS: amLODIPine BESYLATE 10 MG TABLET (FP) PO SCH (10:08)
[2016-12-29] MEDS: CLOTRIMAZOLE 1% CREAM 15 GM TUBE TP SCH (10:08)
--- NOTE | 2016-12-29 12:40 | PN ---
Progress Note, Physician History of Present Illness: stable leg looking much better - Current Medication List Current Medications: Active Medications Acetaminophen (Tylenol -) 325 mg PO Q6H PRN PRN Reason: PAIN 6-10 Stop: 12/31/16 06:00 Last Admin: 12/27/16 19:30 Dose: 325 mg Al Hydroxide/Mg Hydroxide (Mylanta Oral Suspension -) 30 ml PO Q6H PRN PRN Reason: INDIGESTION Albuterol Sulfate (Ventolin Hfa Inhaler -) 1 puff IH TID PRN PRN Reason: SHORTNESS OF BREATH Albuterol Sulfate (Ventolin Hfa Inhaler -) 2 puff IH TID PRN PRN Reason: SHORTNESS OF BREATH Amlodipine Besylate (Norvasc -) 10 mg PO DAILY [facility] Last Admin: 12/29/16 10:08 Dose: 10 mg Calamine (Calamine 8% Topical Lotion -) 1 applic TP QID PRN PRN Reason: FOR ITCHING Last Admin: 12/28/16 09:40 Dose: 1 applic Clotrimazole (Lotrimin 1% Cream -) 1 applic TP BID [facility] Last Admin: 12/29/16 10:08 Dose: 1 applic Diphenhydramine HCl (Benadryl -) 50 mg PO HS PRN PRN Reason: INSOMNIA Last Admin: 12/28/16 21:37 Dose: 50 mg Vancomycin HCl 1,250 mg/ (Dextrose) 250 mls @ 166.667 mls/hr IVPB Q12H [facility] PRN Reason: Protocol Last Admin: 12/29/16 04:29 Dose: 166.667 mls/hr Lactobacillus Acidophilus (Bacid -) 1 tab PO BID [facility] Last Admin: 12/29/16 10:05 Dose: 1 tab Metoprolol Tartrate (Lopressor -) 50 mg PO BID [facility] Last Admin: 12/29/16 10:05 Dose: 50 mg Pantoprazole Sodium (Protonix -) 40 mg PO DAILY [facility] Last Admin: 12/29/16 10:08 Dose: 40 mg Polyethylene Glycol (Miralax (For Daily Use) -) 17 gm PO DAILY [facility] Last Admin: 12/29/16 10:08 Dose: 17 gm - Objective Vital Signs: Vital Signs Temperature 98.3 F 12/29/16 06:00 Pulse Rate 71 12/29/16 06:00 Respiratory Rate 18 12/29/16 06:00 Blood Pressure 129/73 12/29/16 06:00 O2 Sat by Pulse Oximetry (%) 99 12/28/16 21:00 Constitutional: Yes: No Distress, Calm Neck: Yes: Supple Cardiovascular: Yes: Regular Rate and Rhythm Respiratory: Yes: Regular, CTA Bilaterally Gastrointestinal: Yes: Normal Bowel Sounds, Soft Musculoskeletal: Yes: Other Extremities: Yes: Erythema (decreasing) Wound/Incision: Yes: Clean/Dry Neurological: Yes: Alert, Oriented Psychiatric: Yes: Alert Labs: CBC, BMP 12/23/16 06:00 12/29/16 08:35 Assessment/Plan Problem List - Problems (1) Cellulitis of right lower extremity Code(s): L03.115 - CELLULITIS OF RIGHT LOWER LIMB mrsa plan will continue current mmgm will switch to oral abx tomorrow
[2016-12-29] MEDS: ACETAMINOPHEN 325 MG TABLET (FP) PO PRN ×2 (14:02→22:38)
--- NOTE | 2016-12-29 19:38 | PN ---
Progress Note, Physician Chief Complaint: Rt leg cellulitis better Pt will be on PO antibiotics No Fever History of Present Illness: Pt is better today No Fever/SOB/Chest pain - Current Medication List Current Medications: Active Medications Acetaminophen (Tylenol -) 325 mg PO Q6H PRN PRN Reason: PAIN 6-10 Stop: 12/31/16 06:00 Last Admin: 12/29/16 14:02 Dose: 325 mg Al Hydroxide/Mg Hydroxide (Mylanta Oral Suspension -) 30 ml PO Q6H PRN PRN Reason: INDIGESTION Albuterol Sulfate (Ventolin Hfa Inhaler -) 1 puff IH TID PRN PRN Reason: SHORTNESS OF BREATH Albuterol Sulfate (Ventolin Hfa Inhaler -) 2 puff IH TID PRN PRN Reason: SHORTNESS OF BREATH Amlodipine Besylate (Norvasc -) 10 mg PO DAILY [facility] Last Admin: 12/29/16 10:08 Dose: 10 mg Calamine (Calamine 8% Topical Lotion -) 1 applic TP QID PRN PRN Reason: FOR ITCHING Last Admin: 12/28/16 09:40 Dose: 1 applic Clotrimazole (Lotrimin 1% Cream -) 1 applic TP BID [facility] Last Admin: 12/29/16 10:08 Dose: 1 applic Diphenhydramine HCl (Benadryl -) 50 mg PO HS PRN PRN Reason: INSOMNIA Last Admin: 12/28/16 21:37 Dose: 50 mg Vancomycin HCl 1,250 mg/ (Dextrose) 250 mls @ 166.667 mls/hr IVPB Q12H [facility] PRN Reason: Protocol Last Admin: 12/29/16 16:12 Dose: 166.667 mls/hr Lactobacillus Acidophilus (Bacid -) 1 tab PO BID [facility] Last Admin: 12/29/16 10:05 Dose: 1 tab Metoprolol Tartrate (Lopressor -) 50 mg PO BID [facility] Last Admin: 12/29/16 10:05 Dose: 50 mg Pantoprazole Sodium (Protonix -) 40 mg PO DAILY [facility] Last Admin: 12/29/16 10:08 Dose: 40 mg Polyethylene Glycol (Miralax (For Daily Use) -) 17 gm PO DAILY [facility] Last Admin: 12/29/16 10:08 Dose: 17 gm - Objective Vital Signs: Vital Signs Temperature 98.3 F 12/29/16 14:58 Pulse Rate 79 12/29/16 14:58 Respiratory Rate 18 12/29/16 14:58 Blood Pressure 154/82 12/29/16 14:58 O2 Sat by Pulse Oximetry (%) 99 12/28/16 21:00 Constitutional: Yes: Well Nourished Eyes: Yes: Conjunctiva Clear HENT: Yes: Atraumatic, Normocephalic Neck: Yes: Supple, Trachea Midline Respiratory: Yes: Regular, CTA Bilaterally Gastrointestinal: Yes: Normal Bowel Sounds, Soft Edema: Yes (Better today) Edema: RLE: Trace Peripheral Pulses WNL: Yes Neurological: Yes: Alert, Oriented, Cran Nerves II-XII Intact Labs: CBC, BMP 12/23/16 06:00 12/29/16 08:35 Problem List - Problems (1) Cellulitis of right lower extremity Code(s): L03.115 - CELLULITIS OF RIGHT LOWER LIMB (2) Hypertension Code(s): I10 - ESSENTIAL (PRIMARY) HYPERTENSION Qualifiers: Hypertension type: unspecified secondary hypertension Qualified Code(s) : I15.9 - Secondary hypertension, unspecified; I15 - Secondary hypertension (3) Asthma Code(s): J45.909 - UNSPECIFIED ASTHMA, UNCOMPLICATED (4) PVD (peripheral vascular disease) Code(s): I73.9 - PERIPHERAL VASCULAR DISEASE, UNSPECIFIED (5) HLD (hyperlipidemia) Code(s): E78.5 - HYPERLIPIDEMIA, UNSPECIFIED (6) Rash and nonspecific skin eruption Code(s): R21 - RASH AND OTHER NONSPECIFIC SKIN ERUPTION (7) Intertrigo Code(s): L30.4 - ERYTHEMA INTERTRIGO Assessment/Plan (1) Cellulitis of right lower extremity: Vanco/Etrapenam Code(s): L03.115 - CELLULITIS OF RIGHT LOWER LIMB (2) Hypertension(Uncontrolled) Metoprolol 50 PO BID/ Norvasc 10 Po daily Code(s): I10 - ESSENTIAL (PRIMARY) HYPERTENSION Qualifiers: Hypertension type: unspecified secondary hypertension Qualified Code(s) : I15.9 - Secondary hypertension, unspecified; I15 - Secondary hypertension (3) Asthma Code(s): J45.909 - UNSPECIFIED ASTHMA, UNCOMPLICATED (4) PVD (peripheral vascular disease) Code(s): I73.9 - PERIPHERAL VASCULAR DISEASE, UNSPECIFIED (5) HLD (hyperlipidemia) Code(s): E78.5 - HYPERLIPIDEMIA, UNSPECIFIED (6) Rash and nonspecific skin eruption: calaminie lotion/ Benedryl secondary to Motrin Code(s): R21 - RASH AND OTHER NONSPECIFIC SKIN ERUPTION (7) Intertrigo: Lotrimin cream BID Code(s): L30.4 - ERYTHEMA INTERTRIGO
[2016-12-29] MEDS: oxyCODONE HCL 5 MG TABLET PO PRN (22:33)
[2016-12-30] MEDS: VANCOMYCIN 1,250 MG in DEXTROSE 5%-WATER - 250 ML IVPB SCH ×2 (03:52→15:23)
[2016-12-30] MEDS: CLOTRIMAZOLE 1% CREAM 15 GM TUBE TP SCH ×3 (09:56→22:00)
[2016-12-30] MEDS: PANTOPRAZOLE 40 MG TABLET (FP) PO SCH (10:05)
[2016-12-30] MEDS: METOPROLOL TARTRATE 50 MG TABLET (FP) PO SCH ×2 (10:05→21:57)
[2016-12-30] MEDS: LACTOBACILLUS ACIDOPHILUS 1 EACH TAB (FP) PO SCH ×2 (10:05→21:57)
[2016-12-30] MEDS: amLODIPine BESYLATE 10 MG TABLET (FP) PO SCH (10:05)
[2016-12-30] MEDS: POLYETHYLENE GLYCOL 3350 119 GM BTL PO SCH ×2 (10:05→10:07)
[2016-12-30] MEDS ORDERED: PT OWN MED DRAWER 7, Y5N ONE (14:38)
--- NOTE | 2016-12-30 15:23 | PN ---
Progress Note, Physician History of Present Illness: stable leg has improved patient able to walk without pain - Current Medication List Current Medications: Active Medications Acetaminophen (Tylenol -) 325 mg PO Q6H PRN PRN Reason: PAIN 6-10 Stop: 12/31/16 06:00 Last Admin: 12/29/16 22:38 Dose: 325 mg Al Hydroxide/Mg Hydroxide (Mylanta Oral Suspension -) 30 ml PO Q6H PRN PRN Reason: INDIGESTION Albuterol Sulfate (Ventolin Hfa Inhaler -) 1 puff IH TID PRN PRN Reason: SHORTNESS OF BREATH Albuterol Sulfate (Ventolin Hfa Inhaler -) 2 puff IH TID PRN PRN Reason: SHORTNESS OF BREATH Amlodipine Besylate (Norvasc -) 10 mg PO DAILY [facility] Last Admin: 12/30/16 10:05 Dose: 10 mg Calamine (Calamine 8% Topical Lotion -) 1 applic TP QID PRN PRN Reason: FOR ITCHING Last Admin: 12/28/16 09:40 Dose: 1 applic Clotrimazole (Lotrimin 1% Cream -) 1 applic TP BID [facility] Last Admin: 12/30/16 10:05 Dose: 1 applic Diphenhydramine HCl (Benadryl -) 50 mg PO HS PRN PRN Reason: INSOMNIA Last Admin: 12/28/16 21:37 Dose: 50 mg Vancomycin HCl 1,250 mg/ (Dextrose) 250 mls @ 166.667 mls/hr IVPB Q12H [facility] PRN Reason: Protocol Last Admin: 12/30/16 03:52 Dose: 166.667 mls/hr Lactobacillus Acidophilus (Bacid -) 1 tab PO BID [facility] Last Admin: 12/30/16 10:05 Dose: 1 tab Metoprolol Tartrate (Lopressor -) 50 mg PO BID [facility] Last Admin: 12/30/16 10:05 Dose: 50 mg Oxycodone HCl (Roxicodone -) 5 mg PO Q6H PRN PRN Reason: PAIN Last Admin: 12/29/16 22:33 Dose: 5 mg Pantoprazole Sodium (Protonix -) 40 mg PO DAILY [facility] Last Admin: 12/30/16 10:05 Dose: 40 mg Polyethylene Glycol (Miralax (For Daily Use) -) 17 gm PO DAILY [facility] Last Admin: 12/30/16 10:07 Dose: Not Given - Objective Vital Signs: Vital Signs Temperature 99.0 F 12/30/16 15:11 Pulse Rate 72 12/30/16 15:11 Respiratory Rate 18 12/30/16 15:11 Blood Pressure 143/90 12/30/16 15:11 O2 Sat by Pulse Oximetry (%) 99 12/29/16 21:00 Constitutional: Yes: No Distress, Calm Cardiovascular: Yes: Regular Rate and Rhythm Respiratory: Yes: Regular, CTA Bilaterally Gastrointestinal: Yes: Normal Bowel Sounds, Soft Musculoskeletal: Yes: Other Extremities: Yes: Erythema (nearly resolved) Integumentary: Yes: Erythema Wound/Incision: Yes: Dressing Dry and Intact Neurological: Yes: Alert, Oriented Psychiatric: Yes: Alert, Oriented Labs: CBC, BMP 12/23/16 06:00 12/29/16 08:35 Assessment/Plan Problem List - Problems (1) Cellulitis of right lower extremity Code(s): L03.115 - CELLULITIS OF RIGHT LOWER LIMB mrsa plan will continue current mmgm switched to doxy continue doxy 100mg bid for 7 more days
[2016-12-30] MEDS: oxyCODONE HCL 5 MG TABLET PO PRN ×2 (15:33→21:58)
[2016-12-30] MEDS: DOXYCYCLINE HYCLATE 100 MG CAPSULE PO SCH (17:27)
--- NOTE | 2016-12-30 19:39 | PN ---
Progress Note, Physician Chief Complaint: Pt is having rash over back and on arms better today with Benedryl /Calamine lotion Able to walk today No fever History of Present Illness: Pt BP is high today Increase Metoprolol 50mg PO BID - Current Medication List Current Medications: Active Medications Acetaminophen (Tylenol -) 325 mg PO Q6H PRN PRN Reason: PAIN 6-10 Stop: 12/31/16 06:00 Last Admin: 12/29/16 22:38 Dose: 325 mg Al Hydroxide/Mg Hydroxide (Mylanta Oral Suspension -) 30 ml PO Q6H PRN PRN Reason: INDIGESTION Albuterol Sulfate (Ventolin Hfa Inhaler -) 1 puff IH TID PRN PRN Reason: SHORTNESS OF BREATH Albuterol Sulfate (Ventolin Hfa Inhaler -) 2 puff IH TID PRN PRN Reason: SHORTNESS OF BREATH Amlodipine Besylate (Norvasc -) 10 mg PO DAILY [facility] Last Admin: 12/30/16 10:05 Dose: 10 mg Calamine (Calamine 8% Topical Lotion -) 1 applic TP QID PRN PRN Reason: FOR ITCHING Last Admin: 12/28/16 09:40 Dose: 1 applic Clotrimazole (Lotrimin 1% Cream -) 1 applic TP BID [facility] Last Admin: 12/30/16 10:05 Dose: 1 applic Diphenhydramine HCl (Benadryl -) 50 mg PO HS PRN PRN Reason: INSOMNIA Last Admin: 12/28/16 21:37 Dose: 50 mg Doxycycline Hyclate (Vibramycin -) 100 mg PO BID@1000,1800 [facility] Last Admin: 12/30/16 17:27 Dose: 100 mg Lactobacillus Acidophilus (Bacid -) 1 tab PO BID [facility] Last Admin: 12/30/16 10:05 Dose: 1 tab Metoprolol Tartrate (Lopressor -) 50 mg PO BID [facility] Last Admin: 12/30/16 10:05 Dose: 50 mg Oxycodone HCl (Roxicodone -) 5 mg PO Q6H PRN PRN Reason: PAIN Last Admin: 12/30/16 15:33 Dose: 5 mg Pantoprazole Sodium (Protonix -) 40 mg PO DAILY [facility] Last Admin: 12/30/16 10:05 Dose: 40 mg Polyethylene Glycol (Miralax (For Daily Use) -) 17 gm PO DAILY [facility] Last Admin: 12/30/16 10:07 Dose: Not Given - Objective Vital Signs: Vital Signs Temperature 99.0 F 12/30/16 15:11 Pulse Rate 72 12/30/16 15:11 Respiratory Rate 18 12/30/16 15:11 Blood Pressure 143/90 12/30/16 15:11 O2 Sat by Pulse Oximetry (%) 100 12/30/16 09:00 Constitutional: Yes: Well Nourished Eyes: Yes: Conjunctiva Clear, EOM Intact HENT: Yes: Atraumatic, Normocephalic Neck: Yes: Supple, Trachea Midline Cardiovascular: Yes: Regular Rate and Rhythm Respiratory: Yes: Regular, CTA Bilaterally Gastrointestinal: Yes: Normal Bowel Sounds, Soft Edema: RLE: Trace Peripheral Pulses WNL: Yes Neurological: Yes: Alert, Oriented, Cran Nerves II-XII Intact Labs: CBC, BMP 12/23/16 06:00 12/29/16 08:35 Problem List - Problems (1) Cellulitis of right lower extremity Code(s): L03.115 - CELLULITIS OF RIGHT LOWER LIMB (2) Hypertension Code(s): I10 - ESSENTIAL (PRIMARY) HYPERTENSION Qualifiers: Hypertension type: unspecified secondary hypertension Qualified Code(s) : I15.9 - Secondary hypertension, unspecified; I15 - Secondary hypertension (3) Asthma Code(s): J45.909 - UNSPECIFIED ASTHMA, UNCOMPLICATED (4) PVD (peripheral vascular disease) Code(s): I73.9 - PERIPHERAL VASCULAR DISEASE, UNSPECIFIED (5) HLD (hyperlipidemia) Code(s): E78.5 - HYPERLIPIDEMIA, UNSPECIFIED (6) Rash and nonspecific skin eruption Code(s): R21 - RASH AND OTHER NONSPECIFIC SKIN ERUPTION (7) Intertrigo Code(s): L30.4 - ERYTHEMA INTERTRIGO Assessment/Plan (1) Cellulitis of right lower extremity: Vanco/Etrapenam Code(s): L03.115 - CELLULITIS OF RIGHT LOWER LIMB (2) Hypertension(Uncontrolled) Metoprolol 50 PO BID/ Norvasc 10 Po daily Code(s): I10 - ESSENTIAL (PRIMARY) HYPERTENSION Qualifiers: Hypertension type: unspecified secondary hypertension Qualified Code(s) : I15.9 - Secondary hypertension, unspecified; I15 - Secondary hypertension (3) Asthma Code(s): J45.909 - UNSPECIFIED ASTHMA, UNCOMPLICATED (4) PVD (peripheral vascular disease) Code(s): I73.9 - PERIPHERAL VASCULAR DISEASE, UNSPECIFIED (5) HLD (hyperlipidemia) Code(s): E78.5 - HYPERLIPIDEMIA, UNSPECIFIED (6) Rash and nonspecific skin eruption: calaminie lotion/ Benedryl Code(s): R21 - RASH AND OTHER NONSPECIFIC SKIN ERUPTION (7) Intertrigo: Lotrimin cream BID Code(s): L30.4 - ERYTHEMA INTERTRIGO
--- NOTE | 2016-12-30 19:43 | DS ---
Physical Examination Vital Signs: Vital Signs Temperature 99.0 F 12/30/16 15:11 Pulse Rate 72 12/30/16 15:11 Respiratory Rate 18 12/30/16 15:11 Blood Pressure 143/90 12/30/16 15:11 O2 Sat by Pulse Oximetry (%) 100 12/30/16 09:00 Constitutional: Yes: Well Nourished Eyes: Yes: Conjunctiva Clear, EOM Intact HENT: Yes: Atraumatic, Normocephalic Neck: Yes: Supple, Trachea Midline Cardiovascular: Yes: Regular Rate and Rhythm, S1, S2 Respiratory: Yes: Regular, CTA Bilaterally Gastrointestinal: Yes: Normal Bowel Sounds, Soft Edema: Yes Edema: RLE: Trace Wound/Incision: Yes: Other (RLL healing well) Labs: CBC, BMP 12/23/16 06:00 12/29/16 08:35 Discharge Summary Reason For Visit: CELLULITIS OF RIGHT LOWER EXTREMITY Current Active Problems Asthma (Acute) Cellulitis of right lower extremity (Acute) HLD (hyperlipidemia) (Acute) Intertrigo (Acute) PVD (peripheral vascular disease) (Acute) Rash and nonspecific skin eruption (Acute) Hospital Course: Pt had RLL cellulitis Pt was Rx with Vanco and Zyosyn Pt was seen by emilio also WC :MRSA Pt is Sensitive to Doxy 100 Po BID as OP Pt will have Visiting nurse services as OP as Pt is cognitively not competent to take care of her leg( As that was the cause for admission) Condition: Fair - Instructions Diet, Activity, Other Instructions: Recommend to continue wound care with silvadene and mukesh wraps daily. Follow-up with Dr Carranza PMKate gregorio in one week afternoon 3 PM Disposition: VNS/HOME HEALTH CARE - Home Medications Comprehensive Discharge Medication List: Ambulatory Orders Acetaminophen (Tylenol -) 325 mg PO Q6H PRN Al Hydroxide/Mg Hydroxide (Mylanta Oral Suspension -) 30 ml PO Q6H PRN PRN Reason: INDIGESTION Albuterol Sulfate (Ventolin Hfa Inhaler -) 1 puff IH TID PRN PRN Reason: SHORTNESS OF BREATH Amlodipine Besylate (Norvasc -) 10 mg PO DAILY [facility] Clotrimazole (Lotrimin 1% Cream -) 1 applic TP BID [facility] Doxycycline Hyclate (Vibramycin -) 100 mg PO BID Lactobacillus Acidophilus (Bacid -) 1 tab PO BID [facility] Metoprolol Tartrate (Lopressor -) 50 mg PO BID [facility] Oxycodone HCl (Roxicodone -) 5 mg PO Q6H PRN Pantoprazole Sodium (Protonix -) 40 mg PO DAILY [facility] Polyethylene Glycol (Miralax (For Daily Use) -) 17 gm PO DAILY [facility] Discussed with patient above medications were sent to Pharmacy
[2016-12-30] MEDS: ACETAMINOPHEN 325 MG TABLET (FP) PO PRN (21:59)
[2016-12-31] MEDS: LACTOBACILLUS ACIDOPHILUS 1 EACH TAB (FP) PO SCH (09:16)
[2016-12-31] MEDS: CLOTRIMAZOLE 1% CREAM 15 GM TUBE TP SCH (09:17)
[2016-12-31] MEDS: POLYETHYLENE GLYCOL 3350 119 GM BTL PO SCH (09:17)
[2016-12-31] MEDS: METOPROLOL TARTRATE 50 MG TABLET (FP) PO SCH (09:17)
[2016-12-31] MEDS: PANTOPRAZOLE 40 MG TABLET (FP) PO SCH (09:18)
[2016-12-31] MEDS: amLODIPine BESYLATE 10 MG TABLET (FP) PO SCH (09:18)
[2016-12-31] MEDS: DOXYCYCLINE HYCLATE 100 MG CAPSULE PO SCH (09:18)
[2016-12-31] MEDS ORDERED: LOSARTAN 50MG/HCTZ 12.5MG 1 TAB (FP) PO SCH (10:00)
[2016-12-31 10:29] VITALS: PULSE 68; TEMP 98
[2016-12-31 11:13] VITALS: BP 142/78
--- NOTE | 2016-12-31 15:08 | PN ---
Progress Note, Physician - Objective Vital Signs: Vital Signs Temperature 98 F 12/31/16 10:00 Pulse Rate 68 12/31/16 11:12 Respiratory Rate 20 12/31/16 11:12 Blood Pressure 142/78 12/31/16 11:12 O2 Sat by Pulse Oximetry (%) 95 12/30/16 21:00 Labs: CBC, BMP 12/23/16 06:00 12/29/16 08:35 Problem List - Problems (1) Cellulitis of right lower extremity Code(s): L03.115 - CELLULITIS OF RIGHT LOWER LIMB (2) Hypertension Code(s): I10 - ESSENTIAL (PRIMARY) HYPERTENSION Qualifiers: Hypertension type: unspecified secondary hypertension Qualified Code(s) : I15.9 - Secondary hypertension, unspecified; I15 - Secondary hypertension (3) Asthma Code(s): J45.909 - UNSPECIFIED ASTHMA, UNCOMPLICATED (4) PVD (peripheral vascular disease) Code(s): I73.9 - PERIPHERAL VASCULAR DISEASE, UNSPECIFIED (5) HLD (hyperlipidemia) Code(s): E78.5 - HYPERLIPIDEMIA, UNSPECIFIED (6) Rash and nonspecific skin eruption Code(s): R21 - RASH AND OTHER NONSPECIFIC SKIN ERUPTION (7) Intertrigo Code(s): L30.4 - ERYTHEMA INTERTRIGO
== END 2016-12-31 11:31 | disposition home health service (06) | DRG 603 ==
LOC: JER 02:33 → JERBED 07:28 → J8W 18:35
PROVIDERS: ADMIT Internal Medicine; ATTEND Internal Medicine
DX: L03.115 Cellulitis of right lower limb (principal); I10 Essential (primary) hypertension; J45.909 Unspecified asthma, uncomplicated; I73.9 Peripheral vascular disease, unspecified; E78.5 Hyperlipidemia, unspecified; R21 Rash and other nonspecific skin eruption; L30.4 Erythema intertrigo; K21.9 Gastro-esophageal reflux disease without esophagitis
CPT/HCPCS: 36415; 80048; 80053; 81003; 81015; 82947; 85025; 85027; 87040; 87070; 87186; 87205; 93970-TC; 97116-GP; 97162-PG; 99285-25; G0008; G0480; Q2037